=== PATIENT | female | born 1940 | race Caucasian/White ===

== ENCOUNTER 2017-02-25 16:52 | Outpatient (CLI) | payer MEDICARE, OTHER | END 2017-02-25 16:53 | disposition critical access hospital (66) | LOC: EMS 16:52 | PROVIDERS: ATTEND Surgery | DX: M25.561 Pain in right knee (principal) | CPT/HCPCS: A0425; A0429 ==

== ENCOUNTER 2017-02-25 16:52 | Emergency (ER) | payer MEDICARE, OTHER ==
[2017-02-25] MEDS ORDERED: HYDROcod/ACETAM 5/325 MG TABLET PO STA (16:59)
--- NOTE | 2017-02-25 17:17 | ED Physician Documentation ---
History of Present Illness - Stated complaint Stated Complaint: RT KNEE PX - Chief complaint Chief Complaint: Ext Problem - History obtained from History obtained from: Patient, EMS - History of Present Illness Timing: How many hours ago (8) Pain level max: 8 Pain level now: 8 Improved by: Rest Worsened by: palpation - Additonal information Additional information: Patient is a 76-year-old female who presents to the emergency department after standing up off of the toilet today, felt a pop in the right knee and has been unable to bear significant weight since that time. Has been hopping at home. Finally called the ambulance. 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 Also had a recent x-ray that showed mild arthritis. Took a Vicodin at approximately 11 AM without relief. 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 : None HEENT: None Psych: None Musculoskeletal: Osteoarthritis, Chronic back pain Derm: None - Past Surgical History Past Surgical History: Yes General: Appendectomy Ortho: Knee replacement /VESSEL MASTER: Hysterectomy HEENT: Tonsil/Adenoidectomy - Present Medications Home Medications: Ambulatory Orders Medication Instructions Recorded Confirmed Esomeprazole Magnesium [Nexium] 1 cap PO DAILY 02/25/17 02/25/17 Hydrocodone/Acetaminophen 1 - 2 each PO Q6H PRN #14 tablet 02/25/17 [Hydrocodon-Acetaminophen 5-325] Levothyroxine Sodium [Synthroid] 1 tab PO DAILY 02/25/17 02/25/17 Sumatriptan Succinate [Imitrex] 0.5 tab PO PRN PRN 02/25/17 02/25/17 - Allergies Allergies/Adverse Reactions: Allergies Allergy/AdvReac Type Severity Reaction Status Date / Time Sulfa (Sulfonamide Allergy Anaphylaxis Verified 02/25/17 17:05 Antibiotics) codeine AdvReac Emesis Verified 02/25/17 17:05 - Social History Does the pt smoke?: No Smoking Status: Never smoker Does the pt drink ETOH?: Yes ETOH Use: Wine Does the pt have substance abuse?: No - Immunizations Immunizations are current?: Yes - POLST Patient has POLST: No PD ED PE NORMAL - Vitals Vital signs reviewed: Yes - General General: Alert and oriented X 3, No acute distress - Derm Derm: Warm and dry - Extremities Extremities: Other (Right knee exam - Limited secondary to pain, but ACL, MCL, PCL, LCL are grossly intact. Unable to test meniscus secondary to pain. There is a mild joint effusion. Mild tenderness along the lateral joint line. No ecchymosis. Neurovascularly intact. Otherwise normal exam) - Neuro Neuro: Alert and oriented X 3 - Psych Psych: Normal mood, Normal affect Results - Vitals Vitals: Vital Signs - 24 hr 02/25/17 02/25/17 02/25/17 16:52 17:15 18:21 Temperature 36.9 C 36.6 C Heart Rate 87 79 74 Respiratory 16 16 12 Rate Blood Pressure 168/113 H 133/102 H 155/69 H O2 Saturation 99 95 95 Oxygen O2 Source Room air - Rads (name of study) Right knee x-ray Radiology: Prelim report reviewed, EMP read contemporaneously, See rad report ( No acute bony abnormality or joint effusion. Mild osteoarthritis of the medial compartment. ) PD MEDICAL DECISION MAKING - ED course Complexity details: reviewed results, re-evaluated patient, considered differential, d/w patient, d/w family ED course: Patient is a 76-year-old female who presents to the emergency department with acute onset of right knee pain after standing up today. Unclear etiology, possible meniscus injury? Possibly related to her Santos cyst? Given a walker for ambulation and this helped significantly. Reynaldo wrap was used to bandage and compress the knee was also made her feel better. We will have her reevaluated with her doctor in a few days to see how she is improving. There is a very limited exam secondary to pain. Pain well controlled in the emergency department. Patient and family counseled regarding signs and symptoms for which I believe and urgent re-evaluation would be necessary. Patient with good understanding of and agreement to plan and is comfortable going home at this time This document was made in part using voice recognition software. While efforts are made to proofread this document, sound alike and grammatical errors may occur. Departure - Departure Disposition: 01 Home, Self Care Clinical Impression: Knee sprain Qualifiers: Encounter type: initial encounter Involved ligament of knee: unspecified ligament Laterality: right Qualified Code(s): S83.91XA - Sprain of unspecified site of right knee, initial encounter Condition: Good Instructions: ED Sprain Knee Follow-Up: Tani Milian MD [Primary Care Provider] - Within 1 week [facility] [Provider Group] Prescriptions: Hydrocodone/Acetaminophen [Hydrocodon-Acetaminophen 5-325] 1 - 2 each PO Q6H PRN #14 tablet PRN Reason: pain Comments: You may bear weight as tolerated at home. Return if you worsen. You will need to be reevaluated by your doctor or orthopedics within the next week when the swelling and pain decreases to get a better exam of what happened to your knee today. Use the walker at home. Do not drink alcohol or drive while on narcotic pain medicine. Note that many narcotic pain relievers also contain tylenol/acetaminophen. Please ensure that your total dose of acetaminophen from all sources does not exceed 3 grams (3000mg) per day. You may constipated on this medication, take a stool softener such as "Colace" twice a day while you are on it. Also recommend a yscc-huf-acrmara laxative such as senna or MiraLAX any day that you do not have a bowel movement. If you received narcotic pain medication in the emergency department, do not drive or operate machinery for the next 24 hours. Your blood pressure was elevated today on check in to the emergency department. This does not mean that you have hypertension, it is a common phenomenon to check into the emergency department and have elevated blood pressure. I recommend that you see your primary care physician within the week to have it rechecked when you're feeling better. Discharge Date/Time: 02/25/17 18:31
[2017-02-25] MEDS ORDERED: HYDROcod/ACETAM 5/325 MG TABLET ONE (17:18)
--- NOTE | 2017-02-25 18:03 | XRAY Preliminary Report ---
Exam: XR Knee 4 View RT IMPRESSION: 1. No acute bony abnormality or joint effusion. 2. Mild osteoarthritis of the medial compartment. [facility] SITE ID: [id number]
--- NOTE | 2017-02-25 18:05 | XRAY Report ---
EXAM: RIGHT KNEE RADIOGRAPHY EXAM DATE: 02/25/2017 05:49 PM. CLINICAL HISTORY: Stood and felt a pop in her right knee, now painful. COMPARISON: None. TECHNIQUE: 4 views. FINDINGS: Bones: Normal. No fractures or bone lesions. Joints: Mild spurring, joint space narrowing, and sclerosis medially. No effusion. No subluxations. Soft Tissues: Normal. No soft tissue swelling. IMPRESSION: 1. No acute bony abnormality or joint effusion. 2. Mild osteoarthritis of the medial compartment. [facility] Referring Provider Line: [phone] SITE ID: [id number]
[2017-02-25 18:24] VITALS: BP 155/69
== END 2017-02-25 18:31 | disposition home or self-care (01) ==
LOC: EDUNIT# → ED 16:52
DX: S83.91XA Sprain of unspecified site of right knee, initial encounter (principal); X50.1XXA Overexertion from prolonged static or awkward postures, initial encounter; Y93.89 Activity, other specified; R03.0 Elevated blood-pressure reading, without diagnosis of hypertension
CPT/HCPCS: 73564; 99283; 99284; A9270

== ENCOUNTER 2017-02-28 08:13 | Outpatient (CLI) | payer MEDICARE, OTHER ==
[2017-02-28 13:30] LABS: BASOPHILS # (AUTO) 0.1 10^3/uL (0.0-0.1); BASOPHILS % (AUTO) 1.1 %; EOSINOPHILS # (AUTO) 0.2 10^3/uL (0.0-0.7); EOSINOPHILS % (AUTO) 2.8 %; HCT - HEMATOCRIT 41.5 % (37.0-47.0); HGB - HEMOGLOBIN 14.1 g/dL (12.0-16.0); LYMPHOCYTES # (AUTO) 2.6 10^3/uL (1.5-3.5); LYMPHOCYTES % (AUTO) 39.6 %; MEAN CORPUSCULAR HEMOGLOBIN 32.4 pg (27.0-31.0); MEAN CORPUSCULAR HGB CONC 34.1 g/dL (32.0-36.0); MEAN PLATELET VOLUME 8.1 fL (7.9-10.8); MONOCYTES # (AUTO) 0.4 10^3/uL (0.0-1.0); MONOCYTES % (AUTO) 6.2 %; NEUTROPHILS # (AUTO) 3.3 10^3/uL (1.5-6.6); NEUTROPHILS % (AUTO) 50.3 %; NUCLEATED RED BLOOD CELLS AUTO 0.1 /100WBC; RED BLOOD COUNT 4.37 10^6/uL (4.20-5.40); RED CELL DISTRIBUTION WIDTH 13.1 % (12.0-15.0); UNCORRECTED WHITE BLOOD COUNT 6.6 x10^3/uL; WHITE BLOOD COUNT 6.6 x10^3/uL (4.8-10.8)
[2017-02-28 13:57] LABS: ALBUMIN/GLOBULIN RATIO 1.1 (1.0-2.2); BILIRUBIN,TOTAL 0.5 mg/dL (0.2-1.0); BUN - BLOOD UREA NITROGEN 13 mg/dL (6-20); CALCIUM 9.5 mg/dL (8.5-10.3); CARBON DIOXIDE - CO2 26 mmol/L (21-32); CHLORIDE 99 mmol/L (101-111); CHOL/HDL RATIO 3.6 (<4.4); CHOLESTEROL 211 mg/dL; CREATININE 0.6 mg/dL (0.4-1.0); GFR - MDRD 97 (>89); GLUCOSE 80 mg/dL (70-100); HDL CHOLESTEROL 58 mg/dL; LDL/HDL RATIO 2.1 (<4.4); POTASSIUM 3.8 mmol/L (3.5-5.0); SODIUM 136 mmol/L (135-145); TOTAL PROTEIN 7.2 g/dL (6.7-8.2); TRIGLYCERIDES 143 mg/dL; VLDL CHOLESTEROL 29 mg/dL
== END 2017-02-28 08:14 | disposition home or self-care (01) ==
LOC: LAB.R 08:13
PROVIDERS: ATTEND Physician Assistant Medical
DX: Z79.899 Other long term (current) drug therapy (principal); E78.2 Mixed hyperlipidemia; M15.9 Polyosteoarthritis, unspecified; E03.9 Hypothyroidism, unspecified
CPT/HCPCS: 80053; 80061; 84443; 85025

== ENCOUNTER 2017-04-20 08:16 | Outpatient (CLI) | payer MEDICARE, OTHER ==
[2017-04-20 15:27] LABS: ALBUMIN/GLOBULIN RATIO 1.1 (1.0-2.2); BILIRUBIN,TOTAL 0.5 mg/dL (0.2-1.0); CALCIUM 9.2 mg/dL (8.5-10.3); CREATININE 0.6 mg/dL (0.4-1.0); POTASSIUM 3.9 mmol/L (3.5-5.0); TOTAL PROTEIN 6.7 g/dL (6.7-8.2)
== END 2017-04-20 08:17 | disposition home or self-care (01) ==
LOC: LAB.R 08:16
PROVIDERS: ATTEND Physician Assistant Medical
DX: R74.8 Abnormal levels of other serum enzymes (principal)
CPT/HCPCS: 80053

== ENCOUNTER 2017-09-06 11:11 | Outpatient (CLI) | payer MEDICARE, OTHER ==
[2017-09-06 11:32] LABS: BASOPHILS # (AUTO) 0.1 10^3/uL (0.0-0.1); BASOPHILS % (AUTO) 1.2 %; EOSINOPHILS # (AUTO) 0.2 10^3/uL (0.0-0.7); EOSINOPHILS % (AUTO) 3.9 %; HGB - HEMOGLOBIN 13.4 g/dL (12.0-16.0); LYMPHOCYTES # (AUTO) 2.4 10^3/uL (1.5-3.5); LYMPHOCYTES % (AUTO) 38.3 %; MEAN CORPUSCULAR HEMOGLOBIN 32.3 pg (27.0-31.0); MEAN CORPUSCULAR HGB CONC 34.1 g/dL (32.0-36.0); MEAN CORPUSCULAR VOLUME 94.9 fL (81.0-99.0); MEAN PLATELET VOLUME 7.2 fL (7.9-10.8); MONOCYTES # (AUTO) 0.5 10^3/uL (0.0-1.0); MONOCYTES % (AUTO) 7.6 %; NEUTROPHILS # (AUTO) 3.1 10^3/uL (1.5-6.6); PLT - PLATELET COUNT 315 10^3/uL (130-450); RED BLOOD COUNT 4.15 10^6/uL (4.20-5.40); RED CELL DISTRIBUTION WIDTH 12.5 % (12.0-15.0); WHITE BLOOD COUNT 6.4 x10^3/uL (4.8-10.8)
[2017-09-06 11:38] LABS: BILIRUBIN,URINE NEGATIVE (NEGATIVE); GLUCOSE, URINE (UA) NEGATIVE (NEGATIVE); KETONES,URINE (UA) NEGATIVE (NEGATIVE); LEUKOCYTE ESTERASE, URINE NEGATIVE (NEGATIVE); NITRITE,URINE NEGATIVE (NEGATIVE); OCCULT BLOOD,URINE NEGATIVE (NEGATIVE); PH,URINE 6.5 PH (5.0-7.5); PROTEIN,URINE NEGATIVE (NEGATIVE); UROBILINOGEN,URINE 0.2 (NORMAL) E.U./dL (NORMAL)
[2017-09-06 11:47] LABS: CREATININE 0.5 mg/dL (0.4-1.0)
[2017-09-06 11:57] LABS: HB2 TOTAL 14.8 g/dL; HEMOGLOBIN A1C 0.47 g/dL; HEMOGLOBIN A1C % 5.1 % (4.6-6.2)
[2017-09-06 12:03] LABS: BACTERIA,URINE None Seen /HPF (None Seen); CLARITY,URINE CLEAR (CLEAR); RBC,URINE 0-5 /HPF (0-5); SQUAMOUS EPITHELIAL CELL,UR RARE Squamous (<= Few)
== END 2017-09-06 11:12 | disposition home or self-care (01) ==
LOC: LAB 11:11
PROVIDERS: ATTEND Orthopaedic Surgery
DX: Z01.812 Encounter for preprocedural laboratory examination (principal); M25.561 Pain in right knee; D64.9 Anemia, unspecified; R73.9 Hyperglycemia, unspecified; N39.0 Urinary tract infection, site not specified
CPT/HCPCS: 36415; 80048; 81001; 83036; 84466; 85025; 87086; 93005

== ENCOUNTER 2018-01-30 08:00 | Outpatient (CLI) | payer MEDICARE, OTHER ==
[2018-01-30 16:27] LABS: BILIRUBIN,URINE NEGATIVE (NEGATIVE); GLUCOSE, URINE (UA) NEGATIVE (NEGATIVE); KETONES,URINE (UA) NEGATIVE (NEGATIVE); LEUKOCYTE ESTERASE, URINE NEGATIVE (NEGATIVE); NITRITE,URINE NEGATIVE (NEGATIVE); OCCULT BLOOD,URINE NEGATIVE (NEGATIVE); PROTEIN,URINE NEGATIVE (NEGATIVE); UROBILINOGEN,URINE 0.2 (NORMAL) E.U./dL (NORMAL)
[2018-01-30 16:56] LABS: CLARITY,URINE CLEAR (CLEAR)
[2018-01-30 17:26] LABS: BACTERIA,URINE None Seen /HPF (None Seen); RBC,URINE 0-5 /HPF (0-5); SQUAMOUS EPITHELIAL CELL,UR RARE Squamous (<= Few)
== END 2018-01-30 08:01 | disposition home or self-care (01) ==
LOC: LAB.R 08:00
PROVIDERS: ATTEND Physician Assistant Medical
DX: R31.9 Hematuria, unspecified (principal)
CPT/HCPCS: 81001; 87086

== ENCOUNTER 2018-06-20 08:00 | Outpatient (CLI) | payer MEDICARE, OTHER ==
[2018-06-20 13:28] LABS: BASOPHILS # (AUTO) 0.1 10^3/uL (0.0-0.1); BASOPHILS % (AUTO) 1.1 %; EOSINOPHILS # (AUTO) 0.2 10^3/uL (0.0-0.7); EOSINOPHILS % (AUTO) 3.5 %; HGB - HEMOGLOBIN 13.5 g/dL (12.0-16.0); LYMPHOCYTES # (AUTO) 2.2 10^3/uL (1.5-3.5); LYMPHOCYTES % (AUTO) 37.4 %; MEAN CORPUSCULAR HEMOGLOBIN 32.5 pg (27.0-31.0); MEAN CORPUSCULAR HGB CONC 34.6 g/dL (32.0-36.0); MEAN PLATELET VOLUME 8.2 fL (7.9-10.8); MONOCYTES # (AUTO) 0.5 10^3/uL (0.0-1.0); MONOCYTES % (AUTO) 9.3 %; NEUTROPHILS # (AUTO) 2.8 10^3/uL (1.5-6.6); NEUTROPHILS % (AUTO) 48.7 %; PLT - PLATELET COUNT 346 10^3/uL (130-450); RED BLOOD COUNT 4.14 10^6/uL (4.20-5.40); RED CELL DISTRIBUTION WIDTH 13.2 % (12.0-15.0); WHITE BLOOD COUNT 5.8 x10^3/uL (4.8-10.8)
[2018-06-20 13:43] LABS: ALBUMIN 3.7 g/dL (3.2-5.5); ALKALINE PHOSPHATASE 250 IU/L (42-121); ALT ALANINE AMINOTRANSFERASE 28 IU/L (10-60); AST ASPARTATE AMINOTRANSFERASE 33 IU/L (10-42); BILIRUBIN,TOTAL 0.7 mg/dL (0.2-1.0); BUN - BLOOD UREA NITROGEN 17 mg/dL (6-20); CALCIUM 9.3 mg/dL (8.5-10.3); CARBON DIOXIDE - CO2 27 mmol/L (21-32); CHLORIDE 101 mmol/L (101-111); CHOL/HDL RATIO 3.5 (<4.4); CHOLESTEROL 207 mg/dL; CREATININE 0.5 mg/dL (0.4-1.0); GFR - MDRD 120 (>89); GLUCOSE 89 mg/dL (70-100); HDL CHOLESTEROL 59 mg/dL; LDL CHOLESTEROL,CALCULATED 135 mg/dL; LDL/HDL RATIO 2.3 (<4.4); SODIUM 136 mmol/L (135-145); TOTAL PROTEIN 7.3 g/dL (6.7-8.2); VLDL CHOLESTEROL 13 mg/dL
== END 2018-06-20 23:59 | disposition home or self-care (01) ==
LOC: LAB.R 08:00
PROVIDERS: ATTEND Physician Assistant Medical
DX: R31.9 Hematuria, unspecified (principal); Z79.899 Other long term (current) drug therapy; E78.2 Mixed hyperlipidemia; E03.9 Hypothyroidism, unspecified; F32.9 Major depressive disorder, single episode, unspecified
CPT/HCPCS: 80053; 80061; 83721; 84443; 85025

== ENCOUNTER 2018-06-27 08:00 | Outpatient (CLI) | payer MEDICARE, OTHER | END 2018-06-27 23:59 | disposition home or self-care (01) | LOC: LAB.R 08:00 | PROVIDERS: ATTEND Physician Assistant Medical | DX: R74.8 Abnormal levels of other serum enzymes (principal) | CPT/HCPCS: 82977 ==

== ENCOUNTER 2018-10-17 09:12 | Outpatient (CLI) | payer MEDICARE, OTHER ==
[2018-10-17 09:48] LABS: BASOPHILS % (AUTO) 0.5 %; EOSINOPHILS # (AUTO) 0.1 10^3/uL (0.0-0.7); EOSINOPHILS % (AUTO) 1.1 %; LYMPHOCYTES # (AUTO) 1.4 10^3/uL (1.5-3.5); LYMPHOCYTES % (AUTO) 15.4 %; MEAN CORPUSCULAR HEMOGLOBIN 32.5 pg (27.0-31.0); MEAN CORPUSCULAR HGB CONC 33.6 g/dL (32.0-36.0); MEAN CORPUSCULAR VOLUME 96.6 fL (81.0-99.0); MEAN PLATELET VOLUME 6.7 fL (7.9-10.8); MONOCYTES # (AUTO) 0.4 10^3/uL (0.0-1.0); MONOCYTES % (AUTO) 4.4 %; NEUTROPHILS # (AUTO) 7.2 10^3/uL (1.5-6.6); NEUTROPHILS % (AUTO) 78.6 %; PLT - PLATELET COUNT 490 10^3/uL (130-450); RED BLOOD COUNT 4.32 10^6/uL (4.20-5.40); RED CELL DISTRIBUTION WIDTH 13.4 % (12.0-15.0); WHITE BLOOD COUNT 9.2 x10^3/uL (4.8-10.8)
[2018-10-17 09:55] LABS: CALCIUM 9.4 mg/dL (8.5-10.3); CREATININE 0.6 mg/dL (0.4-1.0)
== END 2018-10-17 09:13 | disposition home or self-care (01) ==
LOC: LAB 09:12
PROVIDERS: ATTEND Orthopaedic Surgery
DX: Z01.818 Encounter for other preprocedural examination (principal)
CPT/HCPCS: 36415; 80048; 85025; 93005

== ENCOUNTER 2018-11-13 09:56 | Outpatient (CLI) | payer MEDICARE, OTHER ==
--- NOTE | 2018-11-13 11:08 | DEXA Report ---
Reason: OSTEOPOROSIS Procedure Date: 11/13/2018 Accession Number: [id number] / [id number] Procedure: DEX - Dexa Spine and/or Hip CPT Code: FULL RESULT: EXAM: Dexa Spine and/or Hip DATE: 11/13/2018 10:33 AM CLINICAL HISTORY: OSTEOPOROSIS TECHNIQUE: Dual energy x-ray absorptiometry (DXA) was performed on a Visualead System. Regions measured are the AP Spine, femoral neck, and if needed forearm. COMPARISON: None. In accordance with the International Society for Clinical Densitometry (ISCD) guidelines, data from previous exams may be reanalyzed using current recommendations and techniques. This is done to allow a more accurate basis for comparison with the current study. FINDINGS: The data for the lumbar spine is as follows: BMD (g/cm/cm) T-SCORE Z-SCORE REGION L1 0.873 -2.1 -0.6 L2 1.079 -1.0 0.5 L3 1.032 -1.4 0.1 L4 1.080 -1.0 0.5 TOTAL 1.020 -1.3 0.2 NOTE: All evaluable vertebrae are used for classification The data for the hip is as follows: BMD (g/cm/cm) T-SCORE Z-SCORE REGION Neck 0.620 -3.0 -1.2 TOTAL 0.641 -2.9 -1.3 NOTE: The femoral neck or total proximal femur, whichever is lowest, is used for classification. IMPRESSION: THE WHO CLASSIFICATION BASED ON THE INTERNATIONAL REFERENCE STANDARD IS OSTEOPOROSIS. THE FRACTURE RISK IS HIGH. RECOMMENDATION: Patients with diagnosis of osteoporosis or osteopenia should have regular bone mineral density assessment. For those eligible for Medicare, routine testing is allowed once every 2 years. Testing frequency can be increased for patients who have rapidly progressing disease or for those who are receiving medical therapy to restore bone mass. COMMENT: World Health Organization (WHO) definitions for osteoporosis and osteopenia: NORMAL BMD: T-score at -1.0 or higher, fracture risk is low OSTEOPENIA BMD: T-score between -1.0 and -2.5, fracture risk is increased. OSTEOPOROSIS BMD: T-score at -2.5 or lower, fracture risk is high. National Osteoporosis Foundation recommends: 1. Obtain adequate dietary calcium (at least 1200 mg per day) and vitamin D (400-800 international units per day). 2. Participate, as appropriate, in regular weightbearing and muscle-strengthening exercise. 3. Avoid tobacco use and reduce alcohol and caffeine intake. 4. For more detailed information see the website at www.NOF.org.
== END 2018-11-13 09:57 | disposition home or self-care (01) ==
LOC: DI 09:56
PROVIDERS: ATTEND Family Medicine
DX: M81.0 Age-related osteoporosis without current pathological fracture (principal)
CPT/HCPCS: 36415; 77080; 82306

== ENCOUNTER 2019-10-21 08:00 | Outpatient (CLI) | payer MEDICARE, OTHER ==
[2019-10-21 17:44] LABS: BASOPHILS # (AUTO) 0.1 10^3/uL (0.0-0.1); BASOPHILS % (AUTO) 1.2 %; EOSINOPHILS # (AUTO) 0.2 10^3/uL (0.0-0.7); HGB - HEMOGLOBIN 14.7 g/dL (12.0-16.0); LYMPHOCYTES # (AUTO) 1.4 10^3/uL (1.5-3.5); LYMPHOCYTES % (AUTO) 21.1 %; MEAN CORPUSCULAR HEMOGLOBIN 33.4 pg (27.0-31.0); MEAN CORPUSCULAR HGB CONC 33.6 g/dL (32.0-36.0); MEAN CORPUSCULAR VOLUME 99.5 fL (81.0-99.0); MEAN PLATELET VOLUME 10.4 fL (7.9-10.8); MONOCYTES # (AUTO) 0.5 10^3/uL (0.0-1.0); MONOCYTES % (AUTO) 7.4 %; NEUTROPHILS # (AUTO) 4.4 10^3/uL (1.5-6.6); NEUTROPHILS % (AUTO) 66.8 %; PLT - PLATELET COUNT 318 10^3/uL (130-450); RED CELL DISTRIBUTION WIDTH 12.6 % (12.0-15.0); WHITE BLOOD COUNT 6.6 x10^3/uL (4.8-10.8)
[2019-10-21 17:55] LABS: ALBUMIN 3.9 g/dL (3.2-5.5); ALBUMIN/GLOBULIN RATIO 1.2 (1.0-2.2); CALCIUM 9.4 mg/dL (8.5-10.3); CREATININE 0.6 mg/dL (0.4-1.0); TOTAL PROTEIN 7.1 g/dL (6.7-8.2)
[2019-10-21 18:31] LABS: HB2 TOTAL 15.2 g/dL; HEMOGLOBIN A1C 0.49 g/dL; HEMOGLOBIN A1C % 5.1 % (4.6-6.2)
== END 2019-10-21 23:59 | disposition home or self-care (01) ==
LOC: LAB.WCP 08:00
PROVIDERS: ATTEND Family Medicine
DX: M54.9 Dorsalgia, unspecified (principal); G89.29 Other chronic pain; E03.9 Hypothyroidism, unspecified; M50.30 Other cervical disc degeneration, unspecified cervical region; M15.9 Polyosteoarthritis, unspecified; M25.562 Pain in left knee
CPT/HCPCS: 36415; 80053; 83036; 84443; 85025

== ENCOUNTER 2020-07-30 08:00 | Outpatient (CLI) | payer MEDICARE, OTHER ==
[2020-07-30 18:16] LABS: BASOPHILS # (AUTO) 0.1 10^3/uL (0.0-0.1); BASOPHILS % (AUTO) 0.7 %; EOSINOPHILS % (AUTO) 0.4 %; HCT - HEMATOCRIT 43.1 % (37.0-47.0); HGB - HEMOGLOBIN 14.2 g/dL (12.0-16.0); LYMPHOCYTES # (AUTO) 1.3 10^3/uL (1.5-3.5); MEAN CORPUSCULAR HEMOGLOBIN 33.5 pg (27.0-31.0); MEAN CORPUSCULAR HGB CONC 32.9 g/dL (32.0-36.0); MEAN CORPUSCULAR VOLUME 101.7 fL (81.0-99.0); MEAN PLATELET VOLUME 9.9 fL (7.9-10.8); MONOCYTES # (AUTO) 0.6 10^3/uL (0.0-1.0); NEUTROPHILS # (AUTO) 8.6 10^3/uL (1.5-6.6); NEUTROPHILS % (AUTO) 79.9 %; PLT - PLATELET COUNT 365 10^3/uL (130-450); RED BLOOD COUNT 4.24 10^6/uL (4.20-5.40); RED CELL DISTRIBUTION WIDTH 12.5 % (12.0-15.0); WHITE BLOOD COUNT 10.7 x10^3/uL (4.8-10.8)
[2020-07-30 18:25] LABS: CALCIUM 9.6 mg/dL (8.5-10.3); CREATININE 0.5 mg/dL (0.4-1.0)
[2020-07-30 18:42] LABS: THYROID STIMULATING HORMONE 0.56 uIU/mL (0.34-5.60)
[2020-07-30 18:45] LABS: FREE T3 2.8 pg/mL (2.5-3.9)
[2020-07-30 18:46] LABS: FREE T4 (FREE THYROXINE) 0.83 ng/dL (0.58-1.64)
== END 2020-07-30 23:59 | disposition home or self-care (01) ==
LOC: LAB.WCP 08:00
PROVIDERS: ATTEND Family Medicine
DX: E03.9 Hypothyroidism, unspecified (principal); R20.8 Other disturbances of skin sensation; R60.9 Edema, unspecified; M15.9 Polyosteoarthritis, unspecified
CPT/HCPCS: 36415; 80048; 84439; 84443; 84481; 85025

== ENCOUNTER 2020-08-01 14:36 | Outpatient (CLI) | payer MEDICARE, OTHER | END 2020-08-01 14:37 | disposition critical access hospital (66) | LOC: EMS 14:36 | PROVIDERS: ATTEND Emergency Medicine | DX: M25.551 Pain in right hip (principal); M54.5 Low back pain; S09.90XA Unspecified injury of head, initial encounter; W18.30XA Fall on same level, unspecified, initial encounter | CPT/HCPCS: A0425; A0427 ==

== ENCOUNTER 2020-08-01 14:45 | Emergency (ER) | payer MEDICARE, OTHER ==
[2020-08-01] MEDS ORDERED: HYDROmorphone 1 MG/ML CARPUJECT IVP STA (15:16)
--- NOTE | 2020-08-01 15:23 | ED Physician Documentation ---
History of Present Illness - Stated complaint Stated Complaint: FALL - Chief complaint Chief Complaint: Trauma Hd/Nk - History obtained from History obtained from: Patient, EMS - History of Present Illness Timing: Yesterday Pain level max: 9 Pain level now: 9 - Additonal information Additional information: Patient is a 79-year-old female who fell yesterday outside. She states she missed a step falling backwards onto the concrete striking her head. She complains of right shoulder pain, right elbow pain, right forearm pain and bilateral knee pain. Also complains of a gradual onset headache worsening since the event. She took her hydrocodone at home without relief. She was given morphine by EMS without relief. No numbness or tingling. Has been walking at home. She has bilateral prosthetic knees. Worse with movement, better with rest Review of Systems Ten Systems: 10 systems reviewed and negative Constitutional: denies: Fever, Chills Ears: denies: Ear pain Nose: denies: Rhinorrhea / runny nose, Congestion Throat: denies: Sore throat Cardiac: denies: Chest pain / pressure, Palpitations Respiratory: denies: Cough GI: denies: Abdominal Pain, Vomiting, Diarrhea Skin: denies: Rash Neurologic: denies: Focal weakness, Numbness PD PAST MEDICAL HISTORY - Past Medical History Past Medical History: Yes Cardiovascular: None, Hypertension Respiratory: None Endocrine/Autoimmune: HyPOthyroidism GI: 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 : None HEENT: None Psych: None Musculoskeletal: Osteoarthritis, Chronic back pain Derm: None - Past Surgical History Past Surgical History: Yes General: Appendectomy Ortho: Knee replacement /TEACHER HOME THERAPY: Hysterectomy HEENT: Tonsil/Adenoidectomy - Present Medications Home Medications: Ambulatory Orders Medication Instructions Recorded Confirmed Esomeprazole Magnesium [Nexium] 1 cap PO DAILY 02/25/17 02/25/17 Hydrocodone/Acetaminophen 1 - 2 each PO Q6H PRN #14 tablet 02/25/17 [Hydrocodon-Acetaminophen 5-325] Levothyroxine Sodium [Synthroid] 1 tab PO DAILY 02/25/17 02/25/17 Sumatriptan Succinate [Imitrex] 0.5 tab PO PRN PRN 02/25/17 02/25/17 oxyCODONE [Roxicodone] 5 mg PO Q6H PRN #14 tablet 08/01/20 - Allergies Allergies/Adverse Reactions: Allergies Allergy/AdvReac Type Severity Reaction Status Date / Time Sulfa (Sulfonamide Allergy Anaphylaxis Verified 08/01/20 14:59 Antibiotics) codeine AdvReac Emesis Verified 08/01/20 14:59 - Social History Does the pt smoke?: No Smoking Status: Never smoker Does the pt drink ETOH?: Yes Does the pt have substance abuse?: No - Immunizations Immunizations are current?: Yes - POLST Patient has POLST: No PD ED PE NORMAL - Vitals Vital signs reviewed: Yes - General General: Alert and oriented X 3, No acute distress, Well developed/nourished - HEENT HEENT: Atraumatic, PERRL, EOMI, Ears normal, Moist mucous membranes, Pharynx benign - Neck Neck: Supple, no meningeal sign, Other (Minimal tenderness, mid C-spine. No isaac p-off or deformity) - Cardiac Cardiac: RRR, Strong equal pulses - Respiratory Respiratory: No respiratory distress, Clear bilaterally - Abdomen Abdomen: Soft, Non tender, Non distended - Back Back: No spinal TTP (No step-off or deformity. No tenderness) - Derm Derm: Warm and dry - Extremities Extremities: Other (Diffusely tender to palpation about the right shoulder. Also diffusely tender along the humerus and forearm. No gross deformity noted. There is swelling to the right shoulder. Neurovascular intact. Limited range of motion secondary to pain) - Neuro Neuro: Alert and oriented X 3, administrative services assistant 2-12 intact, No motor deficit, No sensory deficit, Normal speech Eye Opening: Spontaneous Motor: Obeys Commands Verbal: Oriented GCS Score: 15 - Psych Psych: Normal mood, Normal affect Results - Vitals Vitals: Vital Signs - 24 hr 08/01/20 08/01/20 14:50 17:08 Temperature 37.4 C Heart Rate 81 88 Respiratory 16 20 Rate Blood Pressure 138/94 H 166/88 H O2 Saturation 99 92 Oxygen O2 Source Room air - Rads (name of study) head Ct Radiology: Prelim report reviewed, EMP read contemporaneously, See rad report (IMPRESSION: 1. Prominent age related volume loss. 2. No evidence acute stroke, hemorrhage, or mass. No evidence of significant intracranial sequelae of acute trauma. ) cervical spine ct Radiology: Prelim report reviewed, EMP read contemporaneously, See rad report (1. No evidence acute cervical fracture or dislocation. 2. Cervical spondylitic change. 3. Incidental note made of the presence of probable aneurysmal dilatation of the ascending aorta) R shoulder xray Radiology: Prelim report reviewed, EMP read contemporaneously, See rad report (Severe glenohumeral joint degenerative change. No evidence acute bony abnormality of the right shoulder. ) R humerus xray Radiology: Prelim report reviewed, EMP read contemporaneously, See rad report (1. Severe degenerative arthritis of the articulation between the distal humerus and the ulna. 2. Deformity of the radial head, of uncertain chronicity. ) R elbow xray Radiology: Prelim report reviewed, EMP read contemporaneously, See rad report (1. Extensive deformity at the elbow from remote trauma. 2. Degenerative arthritis of the elbow. 3. No plain film evidence of acute bony abnormality of the elbow. ) R forearm xray Radiology: Prelim report reviewed, EMP read contemporaneously, See rad report (Right elbow degenerative arthritis. No evidence acute bony abnormality of the right forearm) B knee xray Radiology: Prelim report reviewed, EMP read contemporaneously, See rad report (1. Expected appearance of bilateral total knee arthroplasties. 2. No evidence acute bony abnormality of the bilateral knees. ) PD MEDICAL DECISION MAKING - ED course Complexity details: reviewed results, re-evaluated patient, considered differential, d/w patient ED course: 79-year-old female with a fall. No acute findings on x-rays or CT. Does have a possible aortic aneurysm, appears to measure about 3 to 3.5 cm in size. She will follow up with her doctor for further evaluation of this. Pain is well controlled. Given a sling for the right arm and this does make it feel better. Ambulating well. Patient counseled regarding signs and symptoms for which I believe and urgent re-evaluation would be necessary. Patient with good understanding of and agreement to plan and is comfortable going home at this time This document was made in part using voice recognition software. While efforts are made to proofread this document, sound alike and grammatical errors may occur. Departure - Departure Disposition: 01 Home, Self Care Clinical Impression: Sprain of shoulder Qualifiers: Encounter type: initial encounter Shoulder sprain type: unspecified sprain Laterality: right Qualified Code(s): S43.401A - Unspecified sprain of right shoulder joint, initial encounter Contusion, elbow Qualifiers: Encounter type: initial encounter Laterality: right Qualified Code(s): S50.01XA - Contusion of right elbow, initial encounter Knee contusion Qualifiers: Encounter type: initial encounter Laterality: unspecified laterality Qualified Code(s): S80.00XA - Contusion of unspecified knee, initial encounter Head injury Qualifiers: Encounter type: initial encounter Qualified Code(s): S09.90XA - Unspecified injury of head, initial encounter Condition: Good Instructions: ED Head Injury Closed, ED Sprain Shoulder Follow-Up: Scot Armas MD [Primary Care Provider] - Within 1 week Prescriptions: oxyCODONE [Roxicodone] 5 mg PO Q6H PRN #14 tablet PRN Reason: breakthrough pain Comments: Wear the sling as needed for comfort. Return if you worsen. Follow-up with your doctor within a week for repeat evaluation. Drink plenty of fluids and rest. You can use the oxycodone as needed for breakthrough pain. Do not drink alcohol or drive while on narcotic pain medicine. Note that many narcotic pain relievers also contain tylenol/acetaminophen. Please ensure that your total dose of acetaminophen from all sources does not exceed 3 grams (3000mg) per day. You may constipated on this medication, take a stool softener such as "Colace" twice a day while you are on it. Also recommend a psep-dgo-gzgxwpf laxative such as senna or MiraLAX any day that you do not have a bowel movement. If you received narcotic pain medication in the emergency department, do not drive or operate machinery for the next 24 hours. You also may have an aortic aneurysm in your ascending aorta. This should be followed up with your doctor with further imaging. Discharge Date/Time: 08/01/20 18:22
--- NOTE | 2020-08-01 16:08 | CT Report ---
PROCEDURE: HEAD WO INDICATIONS: fall, head injury TECHNIQUE: Noncontrast 4.5 mm thick angled axial sections acquired from the foramen magnum to the vertex. For r adiation dose reduction, the following was used: automated exposure control, adjustment of mA and/or kV according to patient size. COMPARISON: None. FINDINGS: Image quality: Excellent. CSF spaces: Basal cisterns are patent. No extra-axial fluid collections. Ventricles are normal in size and shape. Prominent age related volume loss. Question incidental left middle temporal fossa ar achnoid cyst versus prominent anterior temporal tip volume loss. Brain: No midline shift. No intracranial masses or hemorrhage. Russell-white matter interface is norm al. Skull and face: Calvarium and visualized facial bones are intact, without suspicious lesions. Sinuses: Visualized sinuses and mastoids are clear. IMPRESSION: 1. Prominent age related volume loss. 2. No evidence acute stroke, hemorrhage, or mass. No evidence of significant intracranial sequelae of acute trauma. Reviewed by: Zac Bingham MD on 08/01/2020 3:07 PM [facility] Approved by: Zac Bingham MD on 08/01/2020 3:07 PM [facility] Station ID: [id number]
--- NOTE | 2020-08-01 16:12 | CT Report ---
PROCEDURE: CERVICAL SPINE WO INDICATIONS: fall, neck pain TECHNIQUE: Noncontrast 3 mm thick sections acquired from the skull base to the T4 level. Sagittal and coronal r eformats were then constructed. For radiation dose reduction, the following was used: automated exp osure control, adjustment of mA and/or kV according to patient size. COMPARISON: None. FINDINGS: Image quality: Excellent. Bones: No fractures or dislocations. Visualized superior ribs are intact. Cervical spondylitic pepe nge. Soft tissues: Prevertebral soft tissues are normal in thickness. No paravertebral hematomas. No ap ical pneumothoraces. There is likely an ascending aortic aneurysm. The proximal aortic arch appears to measure 4 cm in diameter. IMPRESSION: 1. No evidence acute cervical fracture or dislocation. 2. Cervical spondylitic change. 3. Incidental note made of the presence of probable aneurysmal dilatation of the ascending aorta. Reviewed by: Zac Bingham MD on 08/01/2020 3:11 PM [facility] Approved by: Zac Bingham MD on 08/01/2020 3:11 PM [facility] Station ID: [id number]
--- NOTE | 2020-08-01 16:24 | XRAY Report ---
PROCEDURE: Forearm RT INDICATIONS: fall, pain TECHNIQUE: 2 views of the forearm were acquired. COMPARISON: Right humerus from the same day FINDINGS: Bones: No fractures or dislocations. Degenerative change at the right elbow. No suspicious bony lesi ons. Soft tissues: No suspicious soft tissue calcifications or masses. IMPRESSION: Right elbow degenerative arthritis. No evidence acute bony abnormality of the right forearm. Reviewed by: Zac Bingham MD on 08/01/2020 3:22 PM [facility] Approved by: Zac Bingham MD on 08/01/2020 3:22 PM [facility] Station ID: [id number]
--- NOTE | 2020-08-01 16:26 | XRAY Report ---
PROCEDURE: Humerus RT INDICATIONS: fall, pain TECHNIQUE: 2 views of the humerus were acquired. COMPARISON: Right forearm from the same date FINDINGS: Bones: Severe arthritic change involving the articulation between the distal humerus and the ulna. De formity of the radial head of uncertain chronicity. No suspicious bony lesions. Soft tissues: No suspicious soft tissue calcifications. IMPRESSION: 1. Severe degenerative arthritis of the articulation between the distal humerus and the ulna. 2. Deformity of the radial head, of uncertain chronicity. Comment: Consider dedicated right elbow films to rule out a radial head fracture. Reviewed by: Zac Bingham MD on 08/01/2020 3:25 PM [facility] Approved by: Zac Bingham MD on 08/01/2020 3:25 PM [facility] Station ID: [id number]
--- NOTE | 2020-08-01 16:49 | XRAY Report ---
PROCEDURE: Knee 2 View BILAT INDICATIONS: fall. B knee pain TECHNIQUE: 2 views of the bilateral knee(s) were acquired. COMPARISON: None. FINDINGS: Bones: Bilateral total knee arthroplasties with no evidence of hardware failure or loosening. No fra ctures or dislocations. No suspicious bony lesions. Soft tissues: No joint effusion. No suspicious soft tissue calcifications. IMPRESSION: 1. Expected appearance of bilateral total knee arthroplasties. 2. No evidence acute bony abnormality of the bilateral knees. Reviewed by: Zac Bingham MD on 08/01/2020 3:47 PM [facility] Approved by: Zac Bingham MD on 08/01/2020 3:47 PM [facility] Station ID: [id number]
--- NOTE | 2020-08-01 16:50 | XRAY Report ---
PROCEDURE: Shoulder 3 View RT INDICATIONS: fall, pain TECHNIQUE: 3 views of the shoulder were acquired. COMPARISON: None. FINDINGS: Bones: No fractures or dislocations. No suspicious bony lesions. Visualized ribs appear intact. S evere glenohumeral joint degenerative change. Soft tissues: No suspicious soft tissue calcifications . IMPRESSION: Severe glenohumeral joint degenerative change. No evidence acute bony abnormality of the right shoulder. Reviewed by: Zac Bingham MD on 08/01/2020 3:48 PM [facility] Approved by: Zac Bingham MD on 08/01/2020 3:48 PM [facility] Station ID: [id number]
[2020-08-01 17:11] VITALS: BP 166/88
--- NOTE | 2020-08-01 17:20 | XRAY Report ---
PROCEDURE: Elbow 3 View RT INDICATIONS: possible radial head fracture TECHNIQUE: 3 views of the elbow were acquired. COMPARISON: Right humerus and right forearm from the same date FINDINGS: Bones: Deformity of the radial head and coracoid process of the ulna are likely secondary to remote t rauma. There is severe degenerative arthritis. No significant elbow joint fluid is identified. No radha in film evidence of acute fracture or dislocation. No suspicious bony lesions. Soft tissues: No elbow joint effusion. No suspicious soft tissue calcifications. IMPRESSION: 1. Extensive deformity at the elbow from remote trauma. 2. Degenerative arthritis of the elbow. 3. No plain film evidence of acute bony abnormality of the elbow. Comment: If clinically suspect acute elbow fracture in the face of negative plain films for acute fra cture, consider CT. Reviewed by: Zac Bingham MD on 08/01/2020 4:19 PM [facility] Approved by: Zac Bingham MD on 08/01/2020 4:19 PM [facility] Station ID: [id number]
[2020-08-01] MEDS ORDERED: oxyCODONE 5 MG TABLET PO STA (17:36)
[2020-08-01] MEDS ORDERED: ONDANSETRON 4 MG/2 ML VIAL IVP STA (17:41)
== END 2020-08-01 18:22 | disposition home or self-care (01) ==
LOC: EDUNIT# → ED 14:45
DX: S43.401A Unspecified sprain of right shoulder joint, initial encounter (principal); S50.01XA Contusion of right elbow, initial encounter; S09.90XA Unspecified injury of head, initial encounter; S80.00XA Contusion of unspecified knee, initial encounter; W10.9XXA Fall (on) (from) unspecified stairs and steps, initial encounter; R93.5 Abnormal findings on diagnostic imaging of other abdominal regions, including retroperitoneum
CPT/HCPCS: 70450; 72125; 73030; 73060; 73080; 73090; 73565; 96374; 96375; 99284; J1170

== ENCOUNTER 2020-09-09 08:00 | Outpatient (CLI) | payer MEDICARE, OTHER ==
[2020-09-09 18:28] LABS: BASOPHILS # (AUTO) 0.1 10^3/uL (0.0-0.1); BASOPHILS % (AUTO) 0.9 %; EOSINOPHILS # (AUTO) 0.1 10^3/uL (0.0-0.7); EOSINOPHILS % (AUTO) 0.9 %; HCT - HEMATOCRIT 45.1 % (37.0-47.0); HGB - HEMOGLOBIN 14.6 g/dL (12.0-16.0); LYMPHOCYTES # (AUTO) 2.4 10^3/uL (1.5-3.5); LYMPHOCYTES % (AUTO) 22.7 %; MEAN CORPUSCULAR HEMOGLOBIN 33.5 pg (27.0-31.0); MEAN CORPUSCULAR HGB CONC 32.4 g/dL (32.0-36.0); MEAN CORPUSCULAR VOLUME 103.4 fL (81.0-99.0); MEAN PLATELET VOLUME 9.6 fL (7.9-10.8); MONOCYTES # (AUTO) 0.6 10^3/uL (0.0-1.0); NEUTROPHILS # (AUTO) 7.3 10^3/uL (1.5-6.6); NEUTROPHILS % (AUTO) 68.2 %; PLT - PLATELET COUNT 389 10^3/uL (130-450); RED BLOOD COUNT 4.36 10^6/uL (4.20-5.40); WHITE BLOOD COUNT 10.7 x10^3/uL (4.8-10.8)
[2020-09-09 19:22] LABS: ALBUMIN/GLOBULIN RATIO 1.5 (1.0-2.2); BILIRUBIN,TOTAL 0.8 mg/dL (0.2-1.0); CALCIUM 9.5 mg/dL (8.5-10.3); CREATININE 0.5 mg/dL (0.4-1.0); POTASSIUM 3.5 mmol/L (3.5-5.0); TOTAL PROTEIN 6.6 g/dL (6.7-8.2)
[2020-09-09 19:45] LABS: THYROID STIMULATING HORMONE 1.92 uIU/mL (0.34-5.60)
== END 2020-09-09 23:59 | disposition home or self-care (01) ==
LOC: LAB.WCP 08:00
PROVIDERS: ATTEND Family Medicine
DX: E03.9 Hypothyroidism, unspecified (principal); M17.12 Unilateral primary osteoarthritis, left knee; M25.562 Pain in left knee
CPT/HCPCS: 36415; 80053; 84443; 85025

== ENCOUNTER 2020-10-13 15:01 | Outpatient (CLI) | payer MEDICARE, OTHER ==
--- NOTE | 2020-10-14 08:31 | Ultrasound Report ---
PROCEDURE: Duplex Ext Veins Bilateral INDICATIONS: Bilateral lower extremity tenderness and peripheral edema. TECHNIQUE: Real-time imaging, as well as color and pulse Doppler interrogation, were performed of the deep veins of both legs from the inguinal ligament to the popliteal fossa. COMPARISON: 03/10/2013 FINDINGS: The deep veins are normally compressible, and free of intraluminal thrombus. Color and pu lse Doppler demonstrate normal phasic intravascular flow. There is normal augmentation response to d istal compression maneuver. The calf veins were not well visualized on the left. Compression of the right calf veins limited due to subcutaneous edema. Extensive subcutaneous changes edema is demonstra last in the calf regions bilaterally. IMPRESSION: 1. No definite evidence of deep venous thrombosis in the right or left lower extremities, with evalua tion of the calf veins limited. Reviewed by: Rosendo West MD on 10/14/2020 8:30 AM PDT Approved by: Rosendo West MD on 10/14/2020 8:30 AM PDT Station ID: [id number]
== END 2020-10-13 15:02 | disposition home or self-care (01) ==
LOC: DI 15:01
PROVIDERS: ATTEND Family Medicine
DX: R60.0 Localized edema (principal); R20.8 Other disturbances of skin sensation
CPT/HCPCS: 93970

== ENCOUNTER 2021-03-02 08:29 | Emergency (ER) | payer MEDICARE, OTHER ==
[2021-03-02] MEDS ORDERED: MUPIROCIN 2% OINT 1 GM TOP STA (08:57)
[2021-03-02] MEDS ORDERED: DOXYCYCLINE 100 MG TABLET PO STA (08:57)
--- NOTE | 2021-03-02 08:58 | ED Physician Documentation ---
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 It has had some clear drainage from it (chronic lower leg edema) and has increased tenderness of it the past several days. She has had bandage on it and has noted couple days of red bumps on skin near the wound.), Still present Location: LLE Quality / character: Painful, Discolored (some redness around edges of it the past couple days.), Swelling (general edema of both lower legs for few months.) Associated symptoms: No: Fever, Myalgias Similar symptoms before: Has not had sx before Recently seen: Not recently seen (called PMD office to make appt and was told to come to ER.) Review of Systems Constitutional: denies: Fever, Chills Musculoskeletal: reports: Extremity swelling (both legs for months; tried compressive stockings from drug store but felt them too tight and uncomfortable.) Neurologic: denies: Focal weakness, Numbness PD PAST MEDICAL HISTORY - Past Medical History Past Medical History: Yes Cardiovascular: None, Hypertension, Other Respiratory: None Endocrine/Autoimmune: HyPOthyroidism GI: GERD 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: Hysterectomy HEENT: Tonsil/Adenoidectomy - Present Medications Home Medications: Ambulatory Orders Medication Instructions Recorded Confirmed Esomeprazole Magnesium [Nexium] 1 cap PO DAILY 02/25/17 03/02/21 Levothyroxine Sodium [Synthroid] 1 tab PO DAILY 02/25/17 03/02/21 Sumatriptan Succinate [Imitrex] 0.5 tab PO PRN PRN 02/25/17 03/02/21 Doxycycline Hyclate 100 mg PO BID 7 Days #14 cap 03/02/21 Mupirocin 2% Oint [Bactroban 2% 1 applic TOP TID #15 gm 03/02/21 Oint] - Allergies Allergies/Adverse Reactions: Allergies Allergy/AdvReac Type Severity Reaction Status Date / Time Sulfa (Sulfonamide Allergy Anaphylaxis Verified 03/02/21 08:35 Antibiotics) codeine AdvReac Emesis Verified 03/02/21 08:35 - Social History Does the pt smoke?: No Smoking Status: Never smoker Does the pt drink ETOH?: Yes Does the pt have substance abuse?: No - Immunizations Immunizations are current?: Yes - POLST Patient has POLST: No PD ED PE NORMAL - Vitals Vital signs reviewed: Yes - General General: Alert and oriented X 3, No acute distress, Well developed/nourished - Cardiac Cardiac: RRR, No murmur - Respiratory Respiratory: Clear bilaterally - Derm Derm: Normal color, Warm and dry - Extremities Extremities: No calf tenderness / cord, Other (2+ edema in both lower legs below knees. Left anterior lower leg mid way with rounded wound 1 cm diameter, to fatty tissue layer. No purulence. Mild weeping of clear/yellow fluid and culture obtained. around the wound is area of red point bumps with white heads demarcated in rectangular shape.) - Neuro Neuro: Alert and oriented X 3, No motor deficit, No sensory deficit, Normal speech Results - Vitals Vitals: Vital Signs - 24 hr 03/02/21 03/02/21 08:35 09:18 Temperature 36.1 C L Heart Rate 80 82 Respiratory 18 16 Rate Blood Pressure 145/85 H 132/80 H O2 Saturation 97 96 Oxygen O2 Source Room air - Labs Labs: Microbiology 03/02/21 08:49 Wound Culture - Preliminary Leg - Left PD MEDICAL DECISION MAKING - ED course Complexity details: considered differential (open wound with clear weeping, likely due to leg edema. Not appearing purulent. Is locally tender. Has red point pustules around it in rectangle c/w dermatitis from bandaids. concern for early infection though. ), d/w patient Departure - Departure Disposition: 01 Home, Self Care Clinical Impression: Open wound, lower leg Qualifiers: Encounter type: initial encounter Laterality: left Qualified Code(s): S81.802A - Unspecified open wound, left lower leg, initial encounter Condition: Stable Record reviewed to determine appropriate education?: Yes Follow-Up: Scot Armas MD [Primary Care Provider] - Prescriptions: Mupirocin 2% Oint [Bactroban 2% Oint] 1 applic TOP TID #15 gm Doxycycline Hyclate 100 mg PO BID 7 Days #14 cap Comments: I think your wound may have a mild infection given the tenderness and poor healing. The small red bumps around it however look like irritation from the Band-Aids and coverings you been using (contact dermatitis). I would suggest a nonadherent dressing such as Telfa covered by self adhering wound wrap and avoid taping on the skin in the area. Cleanse the area once or twice daily and apply mupirocin topical antibiotic lightly prior to the dressing. Doxycycline antibiotic twice daily for possible infection. The wound culture will result in a couple of days and give us better guidance on infection presence and antibiotic choice. I would suggest some loose fitting compressive socks to help with the swelling in the legs in general. Wear them during the day and can be removed at night. You do want them to tight as that will be annoying but just enough to persuade the fluid out of the tissue. Follow-up with your primary care later this week or next week for recheck of the wound. I transmitted the prescriptions to [facility] pharmacy. Discharge Date/Time: 03/02/21 09:20
[2021-03-02 09:20] VITALS: BP 132/80
== END 2021-03-02 09:20 | disposition home or self-care (01) ==
LOC: ED 08:29
DX: S81.802A Unspecified open wound, left lower leg, initial encounter (principal); W22.8XXA Striking against or struck by other objects, initial encounter; I10 Essential (primary) hypertension
CPT/HCPCS: 87070; 87077; 87181; 87205; 99283; A9270

== ENCOUNTER 2021-04-28 08:00 | Outpatient (CLI) | payer MEDICARE, OTHER | END 2021-04-28 23:59 | disposition home or self-care (01) | LOC: LAB.WCP 08:00 | PROVIDERS: ATTEND Family Medicine | DX: R35.0 Frequency of micturition (principal) | CPT/HCPCS: 87086; 87181 ==

== ENCOUNTER 2021-05-20 22:43 | Outpatient (CLI) | payer MEDICARE, OTHER | END 2021-05-20 22:44 | disposition critical access hospital (66) | LOC: EMS 22:43 | DX: S00.83XA Contusion of other part of head, initial encounter (principal); M25.551 Pain in right hip; W19.XXXA Unspecified fall, initial encounter; Y92.009 Unspecified place in unspecified non-institutional (private) residence as the place of occurrence of the external cause | CPT/HCPCS: A0425; A0429 ==

== ENCOUNTER 2021-05-20 22:54 | Emergency (ER) | payer MEDICARE, OTHER ==
--- NOTE | 2021-05-20 23:03 | ED Physician Documentation ---
PD HPI Fall - Stated complaint Stated Complaint: GLF - History obtained from History obtained from: Patient, EMS - History of Present Illness Mechanism of injury: Tripped Fall distance: Standing position Where injury occurred: Home Timing - onset: How many hours ago (1) Injury(ies) location: Head, Right Lower Extremity (right hip) Pain level now: 8 Quality of pain: Pain Associated symptoms: No: LOC, AMS, Neck pain, Weakness, Paresthesias Symptoms improve with: Rest Worsens with: Movement, Palpation Contributing factors: No: Anticoagulated, Intoxicated Recently seen: Not recently seen - Additional information Additional information: BIBA. 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 she denies LOC. She c/o generalized headache and right hip pain that is worse with movement Review of Systems Eyes: reports: Reviewed and negative Cardiac: reports: Reviewed and negative Respiratory: reports: Reviewed and negative GI: reports: Reviewed and negative Musculoskeletal: reports: Joint pain (right hip), Pain with weight bearing. denies: Neck pain, Back pain Neurologic: reports: Headache, Head injury. denies: Generalized weakness, Focal weakness, Numbness, LOC PD PAST MEDICAL HISTORY - Past Medical History Past Medical History: Yes Endocrine/Autoimmune: HyPOthyroidism - Past Surgical History Ortho: Knee replacement, Other (surgical repair right hip) - Present Medications Home Medications: Ambulatory Orders Medication Instructions Recorded Confirmed Esomeprazole Magnesium [Nexium] 1 cap PO DAILY 02/25/17 03/02/21 Levothyroxine Sodium [Synthroid] 1 tab PO DAILY 02/25/17 03/02/21 Sumatriptan Succinate [Imitrex] 0.5 tab PO PRN PRN 02/25/17 03/02/21 Doxycycline Hyclate 100 mg PO BID 7 Days #14 cap 03/02/21 Mupirocin 2% Oint [Bactroban 2% 1 applic TOP TID #15 gm 03/02/21 Oint] oxyCODONE [Roxicodone] 5 mg PO Q6H PRN #14 tablet 05/21/21 - Allergies Allergies/Adverse Reactions: Allergies Allergy/AdvReac Type Severity Reaction Status Date / Time Sulfa (Sulfonamide Allergy Anaphylaxis Verified 05/20/21 23:00 Antibiotics) codeine AdvReac Emesis Verified 05/20/21 23:00 PD ED PE NORMAL - Vitals Vital signs reviewed: Yes - General General: Alert and oriented X 3, No acute distress (NAD at rest; painful discomfort with movement involving right hip), Well developed/nourished - HEENT HEENT: PERRL, EOMI - Neck Neck: Supple, no meningeal sign, No bony TTP - Cardiac Cardiac: RRR, No murmur - Respiratory Respiratory: No respiratory distress, Clear bilaterally - Abdomen Abdomen: Soft, Non tender - Back Back: No spinal TTP - Extremities Extremities: No deformity, Other (right hip TTP with limited ROM due to pain ) - Neuro Neuro: Alert and oriented X 3, 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, No motor deficit, No sensory deficit, Normal speech Eye Opening: Spontaneous Motor: Obeys Commands Verbal: Oriented GCS Score: 15 PD ED PE EXPANDED - HEENT HEENT Visual: 1 - bruising, tenderness Results - Vitals Vitals: Vital Signs - 24 hr 05/20/21 05/21/21 23:00 01:17 Temperature 36.5 C 36.5 C Heart Rate 72 62 Respiratory 16 16 Rate Blood Pressure 190/98 H 149/75 H O2 Saturation 98 98 Oxygen O2 Source Room air - Rads (name of study) CT head Radiology: Prelim report reviewed, See rad report right hip xrays with PA pelvis Radiology: Prelim report reviewed, See rad report PD MEDICAL DECISION MAKING - ED course Complexity details: reviewed results, re-evaluated patient, considered differential, d/w patient ED course: presents after fall, head injury and right hip pain. No concerning/acute findings on CTH, right hip xrays. given vicodin 5/325 x 2 tablets with improvement although she still had significant pain with movement of right hip and thus given 5mg oxycodone and then discharged. Return precautions discussed Departure - Departure Disposition: 01 Home, Self Care Clinical Impression: Fall, Head injury, Contusion of hip, right Condition: Good Instructions: ED Mechanical Fall, ED Head Injury Closed, ED Contusion Hip, ED Prevention Fall Prescriptions: oxyCODONE [Roxicodone] 5 mg PO Q6H PRN #14 tablet PRN Reason: Pain Comments: A prescription for oxycodone has been electronically submitted to [facility]; you can use this in addition to your hydrocodone if the hydrocodone does not control your pain/headache. Realize there is an increased risk of side effect when using both of these medications (such as nausea, drowsiness, constipation). Your CT scan of your head does not show any acute abnormality except for the scalp hematoma (bruising and swelling that is visible on the outside). The xrays of your hip do not show any acute findings, such as fracture, dislocation, or displacement of the hardware. I would expect the pain to be the same, possibly worse, for 1-2 days before then steadily improving. Follow up with your primary care provider for reevaluation within 3-5 days, but return to the emergency department if you have significantly worsening/severe/uncontrolled symptoms Discharge Date/Time: 05/21/21 01:17
[2021-05-20] MEDS ORDERED: HYDROcod/ACETAM 5/325 MG TABLET PO STA (23:14)
--- NOTE | 2021-05-21 00:14 | CT Report ---
PROCEDURE: HEAD WO INDICATIONS: Trauma, fall, hematoma (scalp), headache TECHNIQUE: Noncontrast 4.5 mm thick angled axial sections acquired from the foramen magnum to the vertex. For r adiation dose reduction, the following was used: automated exposure control, adjustment of mA and/or kV according to patient size. COMPARISON: 08/01/2020 FINDINGS: Right frontal scalp hematoma. No acute intracranial hemorrhage. Global cerebral volume loss and chronic microvascular ischemic reynolds ges as seen on the prior exam. Russell-white matter differentiation is maintained, without CT evidence o f acute large territory infarct. Skull base and calvarium are intact. IMPRESSION: Right frontal scalp hematoma. No acute intracranial abnormality. Reviewed by: Deyvi Moore MD on 05/21/2021 12:13 AM PST Approved by: Deyvi Moore MD on 05/21/2021 12:13 AM PST Station ID: [id number]
--- NOTE | 2021-05-21 00:16 | XRAY Report ---
PROCEDURE: Hip w/Pelvis 2-3V RT INDICATIONS: Trauma, fall, right hip pain TECHNIQUE: AP pelvis with lateral view(s) of the right hip(s). COMPARISON: None. FINDINGS: Postsurgical changes of right femoral gamma nail for previous right femoral neck or proximal right fe mur fracture. No prior imaging is available. No evidence of acute fracture. Kyphoplasty changes at L5 . IMPRESSION: No acute finding demonstrated. Reviewed by: Deyvi Moore MD on 05/21/2021 12:15 AM PST Approved by: Deyvi Moore MD on 05/21/2021 12:15 AM PST Station ID: [id number]
[2021-05-21] MEDS ORDERED: oxyCODONE 5 MG TABLET PO STA (00:43)
[2021-05-21 01:18] VITALS: BP 149/75
== END 2021-05-21 01:17 | disposition home or self-care (01) ==
LOC: EDSEX → EDUNIT# → ED 22:54
DX: S09.90XA Unspecified injury of head, initial encounter (principal); S70.01XA Contusion of right hip, initial encounter; W01.10XA Fall on same level from slipping, tripping and stumbling with subsequent striking against unspecified object, initial encounter; Y92.009 Unspecified place in unspecified non-institutional (private) residence as the place of occurrence of the external cause
CPT/HCPCS: 70450; 73502; 99282; 99284; A9270

== ENCOUNTER 2021-08-27 12:38 | Outpatient (CLI) | payer MEDICARE, OTHER | END 2021-08-27 12:39 | disposition critical access hospital (66) | LOC: EMS 12:38 | DX: S81.012A Laceration without foreign body, left knee, initial encounter (principal); S80.01XA Contusion of right knee, initial encounter; W01.0XXA Fall on same level from slipping, tripping and stumbling without subsequent striking against object, initial encounter; Y93.01 Activity, walking, marching and hiking; Y92.009 Unspecified place in unspecified non-institutional (private) residence as the place of occurrence of the external cause | CPT/HCPCS: A0425; A0429 ==

== ENCOUNTER 2021-08-27 12:48 | Emergency (ER) | payer MEDICARE, OTHER ==
[2021-08-27 13:00] VITALS: BP 153/82
[2021-08-27] MEDS ORDERED: BUPIVACAINE 0.5% PF 10 ML VIAL SUBQ STA (13:27)
[2021-08-27] MEDS ORDERED: TETANUS/DIPHTHERIA/PERTUSSIS 0.5 ML SYRINGE IM ONE (13:28)
[2021-08-27] MEDS ORDERED: oxyCODONE 5 MG TABLET PO STA (13:28)
--- NOTE | 2021-08-27 13:31 | ED Physician Documentation ---
History of Present Illness - Stated complaint Stated Complaint: GLF/KNEE LAC - Chief complaint Chief Complaint: Trauma Ext - Additonal information Additional information: 80-year-old female presents emergency department for evaluation of a left knee laceration after ground-level fall. She was in slippers and tripped on carpeting that was not flat. She fell forward striking her knee on the carpet and sustained a rather large laceration horizontally across the patella measuring approximately 6 cm. She does have a history of previous total knee replacement. She did not lose consciousness. Not anticoagulated. 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 HEENT: None Psych: None Musculoskeletal: Osteoarthritis, Chronic back pain Derm: None - Past Surgical History Past Surgical History: Yes General: Appendectomy Ortho: Knee replacement, Other (surgical repair right hip) /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 HEENT: Tonsil/Adenoidectomy - Present Medications Home Medications: Ambulatory Orders Medication Instructions Recorded Confirmed Esomeprazole Magnesium [Nexium] 1 cap PO DAILY 02/25/17 03/02/21 Levothyroxine Sodium [Synthroid] 1 tab PO DAILY 02/25/17 03/02/21 Sumatriptan Succinate [Imitrex] 0.5 tab PO PRN PRN 02/25/17 03/02/21 Doxycycline Hyclate 100 mg PO BID 7 Days #14 cap 03/02/21 Mupirocin 2% Oint [Bactroban 2% 1 applic TOP TID #15 gm 03/02/21 Oint] oxyCODONE [Roxicodone] 5 mg PO Q6H PRN #14 tablet 05/21/21 Ibuprofen [Motrin] 600 mg PO Q6H PRN #30 tab 08/27/21 cephALEXin [Keflex] 500 mg PO Q6H #28 cap 08/27/21 oxyCODONE [Roxicodone] 5 mg PO TID PRN #20 tablet 08/27/21 - Allergies Allergies/Adverse Reactions: Allergies Allergy/AdvReac Type Severity Reaction Status Date / Time Sulfa (Sulfonamide Allergy Anaphylaxis Verified 08/27/21 12:55 Antibiotics) codeine AdvReac Emesis Verified 08/27/21 12:55 - Social History Does the pt smoke?: No Smoking Status: Never smoker Does the pt drink ETOH?: Yes Does the pt have substance abuse?: No - Immunizations Immunizations are current?: Yes - POLST Patient has POLST: No PD ED PE EXPANDED - General General: Alert, No acute distress, Well developed/nourished - Neck Neck: Supple w/out meningeal sx, No tenderness. No: Soft tissue TTP, Bony TTP, Limited ROM - Cardiac Cardiac: Regular Rate, Radial strong equal, Pedal strong equal, Cap refill < 2 sec - Respiratory Respiratory: Clear to ausultation daniella. No: Distress, Labored - Extremities Extremities: Right knee (Extensive contusion. Normal flexion and extension.), Left knee (Normal flexion and extension. 6 cm horizontal laceration directly across the patella. No obvious joint space or capsule involvement) Results - Vitals Vitals: Vital Signs - 24 hr 08/27/21 12:55 Temperature 36.5 C Heart Rate 74 Respiratory 16 Rate Blood Pressure 153/82 H O2 Saturation 98 Oxygen O2 Source Room air - Rads (name of study) left knee Radiology: Final report received (Soft tissue laceration without fracture or foreign body) Procedures - Laceration (location) left knee Length in cm: 7 Wound type: Linear, Superficial, Clean, Exposure of cartilage Neurovascular status: Sensory intact, Motor intact, Vascular intact Tendon involvement: Tendon intact Anesthesia: Marcaine 0.5% Wound preparation: Chlorhexadine, Irrigated copiously NS, Wound explored, To the base Deep layer closure: # sutures - enter number (13) Skin layer closure: Interrupted, Size #-0 - enter number (4) Other: Patient tolerated well, No complications, Tetanus booster given PD MEDICAL DECISION MAKING - ED course Complexity details: reviewed results, re-evaluated patient, considered differential, d/w patient ED course: 80-year-old female presents emergency department for evaluation of left knee laceration sustained after ground-level fall this morning when she tripped on uneven carpet. She does have a history total knee replacement in this extremity. She has preserved flexion extension. The x-ray did not show any worrisome findings. This was a rather large laceration about 7 cm. Fully explored to the base without any findings of capsular or joint involvement. The wound was closed with 13 sutures. Given the large size she will be placed on prophylactic antibiotics. Also given a knee immobilizer. Limited prescription for oxycodone. Patient is advised to follow-up with primary care doctor and emergent and worrisome return precautions were discussed. I am prescribing a short course of short-acting opioid pain medication for this patient. 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 I have discussed that the opioids are for short term therapy only, and will not be refilled from the ED. Departure - Departure Disposition: Home, Self Care Clinical Impression: Fall from ground level Laceration of left knee Qualifiers: Encounter type: initial encounter Qualified Code(s): S81.012A - Laceration without foreign body, left knee, initial encounter Knee contusion Qualifiers: Encounter type: initial encounter Laterality: right Qualified Code(s): S80.01XA - Contusion of right knee, initial encounter Condition: Stable Record reviewed to determine appropriate education?: Yes Instructions: ED Laceration All Follow-Up: Scot Armas MD [Primary Care Provider] - Prescriptions: cephALEXin [Keflex] 500 mg PO Q6H #28 cap Ibuprofen [Motrin] 600 mg PO Q6H PRN #30 tab PRN Reason: Pain oxyCODONE [Roxicodone] 5 mg PO TID PRN #20 tablet PRN Reason: Pain Comments: Jasmin you are seen today after a ground-level fall and had a large 7 cm laceration across her left knee. This was closed today with 13 sutures. The sutures should be removed in about 10 days time. Because of the location and length of this wound you are at high risk for infection. Please fill the prescription for the cephalexin to begin taking as directed. It is important that you use the knee immobilizer when out of bed. Avoid flexing the knee too much as this could reresult in tearing of the sutures. I expect that tomorrow will be very sore. You do have contusions on both knees. I do recommend that you use the Reynaldo wrap on the right 1 to help reduce swelling. If at any point you have concerns of infection, fevers uncontrolled vomiting or severe knee swelling then please return immediately to the ER. Use the walker you have at home to help you get around. I am prescribing a short course of narcotic pain medication for you. These are potentially dangerous and addictive medications that should be used carefully. These medications may constipate you. Take an sili-nsc-ydfabdr stool softener (docusate) twice daily with plenty of water while taking these medications. If you go 24 hours without a bowel movement, take lxsl-fry-luhrtfh miralax, per package instructions. Do not drink or drive while taking these medications. If you received narcotic or sedating medications while in the emergency department, do not drive for 24 hours. Store this medication in a safe, secure place and out of reach of children. It is a violation of federal law to give or sell this medication to another person or to use in a manner other than prescribed. The ED will not refill narcotic prescriptions, including prescriptions lost or stolen. To dispose of unwanted medications: 1. [facility] [address] in [place] has a medication drop box. They accept prescription medications (in pill form) Monday through Monday 9:00 a.m. to 5:00 p.m. 2. The [facility] [employer] accepts prescription medications (in pill form only) for disposal year round. Call for more information. 3. Contact the [facility] for the next [facility] sponsored prescription drug collection event. , [phone], or [phone]; Note that many narcotic pain relievers also contain Tylenol/acetaminophen. Please ensure that your total dose of acetaminophen from all sources does not exceed 3 g (3000 mg) per day.
[2021-08-27] MEDS ORDERED: LIDOCAINE 1% 2 ML VIAL MC ONE (13:52)
[2021-08-27] MEDS ORDERED: cefTRIAXone 1 GM VIAL IM STA (13:52)
--- NOTE | 2021-08-27 13:55 | XRAY Report ---
PROCEDURE: Knee 3 View LT INDICATIONS: glf; laceration TECHNIQUE: 3 views of the left knee(s) were acquired. COMPARISON: None. FINDINGS: Bones: No fractures or dislocations. No suspicious bony lesions. Soft tissues: No joint effusion. No suspicious soft tissue calcifications. Soft tissue defect noted anterior to the patella. No radiopaque foreign bodies. IMPRESSION: Soft tissue laceration without fracture or foreign body Reviewed by: Santos Orosco MD on 08/27/2021 12:54 PM [email or web address] Approved by: Santos Orosco MD on 08/27/2021 12:54 PM [facility] Station ID: [id number]
[2021-08-27] MEDS ORDERED: BACITRACIN ZINC OINT 1 PACKET TOP STA (15:12)
== END 2021-08-27 16:15 | disposition home or self-care (01) ==
LOC: EDUNIT# → ED 12:48
DX: S81.012A Laceration without foreign body, left knee, initial encounter (principal); W01.0XXA Fall on same level from slipping, tripping and stumbling without subsequent striking against object, initial encounter; I10 Essential (primary) hypertension; Z23 Encounter for immunization
CPT/HCPCS: 12002; 73562; 90471; 90715; 96372; 99284; A9270

== ENCOUNTER 2022-03-02 09:16 | Emergency (ER) | payer MEDICARE, OTHER ==
--- NOTE | 2022-03-02 09:38 | ED Physician Documentation ---
PD HPI LOWER EXT INJURY - Stated complaint Stated Complaint: LEG PX - History obtained from History obtained from: Patient, Family, EMS - History of Present Illness PD HPI LOW EXT INJURY LOCATION: Right, Lower leg Type of injury: Other (growing hematoma) Where injury occurred: Home Timing - onset: Yesterday Timing - duration: Days (1) Timing - details: Gradual onset Improved by: Rest, Immobilization Worsened by: Moving, Palpating Associated symptoms: Swelling, Discolored Contributing factors: Prior ortho surgery. No: Anticoagulated Similar symptoms before: Has not had sx before Recently seen: Not recently seen - Additional information Additional information: 81-year-old Jasmin Ralph has a history of Hypothyroidism and chronic lower extremity edema. She has not done well with diuretic and she is unable to place compression stockings. She has had chronic swelling for more than a year to her lower extremities and she has now developed some bruising to her lower extremities and she is noted to have a large hematoma to the medial aspect of the right lower calf. She has pain associated with this. She does not feel ill otherwise. She does require help into and out of bed and her family is helping her with this. Review of Systems Constitutional: reports: Fatigue. denies: Fever, Chills Eyes: denies: Decreased vision Ears: denies: Ear pain Nose: denies: Congestion Throat: denies: Sore throat Cardiac: denies: Chest pain / pressure, Palpitations Respiratory: denies: Dyspnea, Cough GI: denies: Abdominal Pain, Nausea, Vomiting, Diarrhea : denies: Dysuria, Frequency Skin: denies: Rash Musculoskeletal: reports: Extremity pain, Extremity swelling. 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 : None HEENT: None Psych: None Musculoskeletal: Osteoarthritis, Chronic back pain Derm: None - Past Surgical History Past Surgical History: Yes General: Appendectomy Ortho: Knee replacement, Other (surgical repair right hip) /FOREIGN EXCHANGE SERVICES MANAGER: Hysterectomy HEENT: Tonsil/Adenoidectomy - Present Medications Home Medications: Ambulatory Orders Medication Instructions Recorded Confirmed Levothyroxine Sodium [Synthroid] 1 tab PO DAILY 02/25/17 03/02/22 Sumatriptan Succinate [Imitrex] 0.5 tab PO PRN PRN 02/25/17 03/02/21 Dexamethasone [Decadron] 0.75 mg PO DAILY 03/02/22 03/02/22 HYDROcod/ACETAM 5/325 [[place] 5/325] 1 - 2 tablet PO Q6H PRN 03/02/22 03/02/22 traMADol [Ultram] 50 - 100 mg PO Q6H PRN #20 tablet 03/02/22 - Allergies Allergies/Adverse Reactions: Allergies Allergy/AdvReac Type Severity Reaction Status Date / Time Sulfa (Sulfonamide Allergy Anaphylaxis Verified 08/27/21 12:55 Antibiotics) codeine AdvReac Emesis Verified 08/27/21 12:55 - Social History Does the pt smoke?: No Smoking Status: Never smoker Does the pt drink ETOH?: Yes Does the pt have substance abuse?: No - Immunizations Immunizations are current?: Yes - POLST Patient has POLST: No PD ED PE NORMAL - Vitals Vital signs reviewed: Yes - General General: Alert and oriented X 3, No acute distress, Well developed/nourished - HEENT HEENT: Atraumatic, PERRL, EOMI - Cardiac Cardiac: RRR, No murmur - Respiratory Respiratory: No respiratory distress, Other (diminished breath sounds ) - Abdomen Abdomen: Soft, Non tender - Back Back: No CVA TTP, No spinal TTP - Derm Derm: Normal color, Warm and dry - Extremities Extremities: Other (There is 2+ pitting edema to the knee bilaterally and there is evidence of venous stasis disease bilaterally with color changes to the medial and lateral aspects of both calves. There is a large hematoma to the R medial calf. No drainage or surrounding erythema to suggest cellulitis. 20-30cm X 15cm) - Neuro Neuro: Alert and oriented X 3, flocculator operator 2-12 intact, No motor deficit, No sensory deficit, Normal speech Eye Opening: Spontaneous Motor: Obeys Commands Verbal: Oriented GCS Score: 15 - Psych Psych: Normal mood, Normal affect Results - Vitals Vitals: Vital Signs - 24 hr 03/02/22 03/02/22 03/02/22 09:20 10:06 13:08 Temperature 37.5 C 36.4 C L Heart Rate 92 96 84 Respiratory 18 18 14 Rate Blood Pressure 114/97 H 130/98 H 125/68 O2 Saturation 99 98 100 Oxygen O2 Source Room air - Labs Labs: Laboratory Tests 03/02/22 03/02/22 03/02/22 09:51 09:51 09:51 WBC 9.5 RBC 3.86 L Hgb 13.2 Hct 38.9 MCV 100.8 H MCH 34.2 H MCHC 33.9 RDW 13.4 Plt Count 355 MPV 8.2 Neut # (Auto) 7.8 H Lymph # (Auto) 1.0 L [place] # (Auto) 0.5 Eos # (Auto) 0.0 Baso # (Auto) 0.1 Absolute Nucleated RBC 0.00 Nucleated RBC % 0.0 PT 11.1 INR 1.0 APTT 26.4 Sodium 133 L Potassium 3.1 L Chloride 99 L Carbon Dioxide 24 Anion Gap 10.0 BUN 12 Creatinine 0.5 Estimated GFR (MDRD) 119 Glucose 125 H Calcium 9.5 Total Bilirubin 1.0 AST 27 ALT 30 Alkaline Phosphatase 47 Total Protein 5.6 L Albumin 3.2 Globulin 2.4 Albumin/Globulin Ratio 1.3 Lipase 42 PD MEDICAL DECISION MAKING - ED course Complexity details: reviewed old records, reviewed results, re-evaluated patient, considered differential, d/w patient, d/w family ED course: 81-year-old female with history of thyroid disorder and chronic lower extremity edema which has been resistant to treatment appears to have some significant dependent edema and she has now developed a hematoma to the medial aspect of the right calf. This is a large hematoma 30 x 15 cm. She has some pain associated with this. The thought is that she was injured by assistance with moving. She is not amenable to compression stockings and we have elected to teach the family the use of compression dressing and I have recommended they do this twice per day for 4 to 5 hours at a time. We did asked for consult from physical therapy to a assist the family in movement of the patient without injuring her legs. No specific therapy for the hematoma. Departure - Departure Disposition: 01 Home, Self Care Clinical Impression: Hematoma of lower leg, Dependent edema Instructions: ED Edema Legs Bilateral, ED Hematoma Follow-Up: Scot Armas MD [Provider Admit Priv/Credential] - Prescriptions: traMADol [Ultram] 50 - 100 mg PO Q6H PRN #20 tablet PRN Reason: Pain Comments: Jasmin, today there is a large hematoma on your right leg. This is a collection of blood from a broken blood vessel underneath the skin. It will not be possible for us to take the blood out of this without doing more damage to you. For the general swelling in your legs my recommendation is to use the wraps to your legs twice per day for about 4 to 5 hours at a time. Have your family help you with this. The expectation is that over a period of weeks that the swelling in your ankles gets improved as does the level of pain you have associated with this. The hematoma may have skin breakdown and may take months to heal. A follow-up with your primary care doctor is indicated. I have E scribed some tramadol to the [facility] here in [place] and my recommendation is to take this with some Tylenol as it will work better for pain
[2022-03-02 09:57] LABS: BASOPHILS # (AUTO) 0.1 10^3/uL (0.0-0.1); BASOPHILS % (AUTO) 0.5 %; HCT - HEMATOCRIT 38.9 % (37.0-47.0); HGB - HEMOGLOBIN 13.2 g/dL (12.0-16.0); LYMPHOCYTES % (AUTO) 10.3 %; MEAN CORPUSCULAR HEMOGLOBIN 34.2 pg (27.0-31.0); MEAN CORPUSCULAR HGB CONC 33.9 g/dL (32.0-36.0); MEAN CORPUSCULAR VOLUME 100.8 fL (81.0-99.0); MEAN PLATELET VOLUME 8.2 fL (7.9-10.8); MONOCYTES # (AUTO) 0.5 10^3/uL (0.0-1.0); NEUTROPHILS # (AUTO) 7.8 10^3/uL (1.5-6.6); NEUTROPHILS % (AUTO) 82.1 %; PLT - PLATELET COUNT 355 10^3/uL (130-450); RED BLOOD COUNT 3.86 10^6/uL (4.20-5.40); RED CELL DISTRIBUTION WIDTH 13.4 % (12.0-15.0); WHITE BLOOD COUNT 9.5 x10^3/uL (4.8-10.8)
[2022-03-02 10:01] LABS: PT - PROTHROMBIN TIME 11.1 secs (9.9-12.6)
[2022-03-02 10:08] LABS: ALBUMIN 3.2 g/dL (3.2-5.5); ALBUMIN/GLOBULIN RATIO 1.3 (1.0-2.2); CALCIUM 9.5 mg/dL (8.5-10.3); CREATININE 0.5 mg/dL (0.4-1.0); POTASSIUM 3.1 mmol/L (3.5-5.0); TOTAL PROTEIN 5.6 g/dL (6.7-8.2)
[2022-03-02 10:09] LABS: PARTIAL THROMBOPLASTIN TIME 26.4 secs (24.9-33.3)
[2022-03-02] MEDS ORDERED: traMADol 50 MG TABLET PO STA (14:24)
[2022-03-02 16:58] VITALS: BP 130/85
== END 2022-03-02 16:24 | disposition home or self-care (01) ==
LOC: EDUNIT# → EDBD → ED 09:16
DX: S80.11XA Contusion of right lower leg, initial encounter (principal); X58.XXXA Exposure to other specified factors, initial encounter; R60.9 Edema, unspecified; I10 Essential (primary) hypertension
CPT/HCPCS: 36415; 80053; 83690; 85025; 85610; 85730; 99282; 99284; A9270

== ENCOUNTER 2022-04-02 16:26 | Outpatient (CLI) | payer MEDICARE, OTHER | END 2022-04-02 23:59 | disposition critical access hospital (66) | LOC: EMS 16:26 | DX: S09.90XA Unspecified injury of head, initial encounter (principal); R53.1 Weakness; W18.39XA Other fall on same level, initial encounter; Y92.002 Bathroom of unspecified non-institutional (private) residence as the place of occurrence of the external cause | CPT/HCPCS: A0425; A0429 ==

== ENCOUNTER 2022-04-02 16:33 | Emergency (ER) | payer MEDICARE, OTHER ==
[2022-04-02] MEDS ORDERED: MORPHINE 2 MG/ML CARPUJECT IVP STA (17:16)
--- NOTE | 2022-04-02 17:19 | ED Physician Documentation ---
History of Present Illness - Stated complaint Stated Complaint: WEAKNESS/FALL - Chief complaint Chief Complaint: Ext Problem - History obtained from History obtained from: Patient, Family - History of Present Illness Timing: Today Pain level max: 8 Pain level now: 8 - Additonal information Additional information: 81-year-old female presents to the emergency department complaining of weakness in her bilateral legs over the past several days. She has been seen at the wound care clinic for chronic wounds on both legs as well as chronic edema. She states that she did strike her head when she fell, right side of the head. Denies being on any blood thinners. Worse with movement, better with rest. No loss of consciousness. No vomiting. 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 : None HEENT: None Psych: None Musculoskeletal: Osteoarthritis, Chronic back pain Derm: None - Past Surgical History Past Surgical History: Yes General: Appendectomy Ortho: Knee replacement, Other (surgical repair right hip) /BODY REPAIRER: Hysterectomy HEENT: Tonsil/Adenoidectomy - Present Medications Home Medications: Ambulatory Orders Medication Instructions Recorded Confirmed Levothyroxine Sodium [Synthroid] 1 tab PO DAILY 02/25/17 03/02/22 Sumatriptan Succinate [Imitrex] 0.5 tab PO PRN PRN 02/25/17 03/02/21 HYDROcod/ACETAM 5/325 [[place] 5/325] 1 - 2 tablet PO Q6H PRN 03/02/22 03/02/22 dexAMETHasone [Decadron] 0.75 mg PO DAILY 03/02/22 03/02/22 traMADol [Ultram] 50 - 100 mg PO Q6H PRN #20 tablet 03/02/22 Oxycodone HCl [Roxicodone] 5 mg PO Q6H PRN #14 tablet 04/02/22 - Allergies Allergies/Adverse Reactions: Allergies Allergy/AdvReac Type Severity Reaction Status Date / Time Sulfa (Sulfonamide Allergy Anaphylaxis Verified 08/27/21 12:55 Antibiotics) codeine AdvReac Emesis Verified 08/27/21 12:55 - Social History Does the pt smoke?: No Smoking Status: Never smoker Does the pt drink ETOH?: Yes Does the pt have substance abuse?: No - Immunizations Immunizations are current?: Yes - POLST Patient has POLST: No PD ED PE NORMAL - Vitals Vital signs reviewed: Yes - General General: Alert and oriented X 3, No acute distress, Well developed/nourished - HEENT HEENT: PERRL, Moist mucous membranes, Pharynx benign, Other (Tender to palpation in the right parietal area. Small hematoma. No palpable skull fracture.) - Neck Neck: Supple, no meningeal sign, No bony TTP - Cardiac Cardiac: RRR - Respiratory Respiratory: No respiratory distress, Clear bilaterally - Abdomen Abdomen: Soft, Non tender, Non distended - Back Back: No CVA TTP, No spinal TTP - Derm Derm: Warm and dry - Extremities Extremities: Normal ROM s pain, Other (Edema of the bilateral lower extremity. The bandages were removed. There is a skin tear on the right upper leg. There is a large poorly healing wound to the right lower leg as well. There is a small skin tear to the left foot.) - Neuro Neuro: Alert and oriented X 3, cigarette stamper 2-12 intact, No motor deficit, No sensory deficit, Normal speech Eye Opening: Spontaneous Motor: Obeys Commands Verbal: Oriented GCS Score: 15 - Psych Psych: Normal mood, Normal affect Results - Vitals Vitals: Vital Signs - 24 hr 04/02/22 04/02/22 04/02/22 16:47 18:52 20:00 Temperature 36.6 C Heart Rate 102 H 93 92 Respiratory 22 21 20 Rate Blood Pressure 123/88 H 106/70 154/104 H O2 Saturation 96 96 97 04/02/22 21:44 Temperature Heart Rate 92 Respiratory 16 Rate Blood Pressure 156/114 H O2 Saturation 97 Oxygen O2 Source Room air - EKG (time done) 1801 Rate: Rate (enter#) (94) Rhythm: NSR [place]: Normal Intervals: Normal [place] QRS: Normal Ischemia: Non specific changes - Labs Labs: Laboratory Tests 04/02/22 04/02/22 04/02/22 17:29 17:29 20:19 WBC 15.0 H RBC 3.93 L Hgb 13.4 Hct 39.0 MCV 99.2 H MCH 34.1 H MCHC 34.4 RDW 13.4 Plt Count 407 MPV 8.2 Neut # (Auto) Not Reportable Lymph # (Auto) Not Reportable [place] # (Auto) Not Reportable Eos # (Auto) Not Reportable Baso # (Auto) Not Reportable Absolute Nucleated RBC Not Reportable Total Counted 100 Band Neuts % (Manual) 1 Reactive Lymphs % (Man) 6 Abnorm Lymph % (Manual) 0 Nucleated RBC % Not Reportable Neutrophils # (Manual) 12.8 H Lymphocytes # (Manual) 1.7 Monocytes # (Manual) 0.3 Eosinophils # (Manual) 0.2 Basophils # (Manual) 0.2 H Differential Comment MANUAL DIFFERENTIAL WBC Morphology NORMAL APPEARANCE Platelet Estimate NORMAL (130-450,000) Platelet Morphology NORMAL APPEARANCE RBC Morph Micro Appear NORMAL APPEARANCE Sodium 129 L Potassium 2.4 L* Chloride 93 L Carbon Dioxide 23 Anion Gap 13.0 BUN 15 Creatinine 0.5 Estimated GFR (MDRD) 119 Glucose 78 Calcium 8.8 Magnesium 1.6 L Total Bilirubin 0.9 AST 15 ALT 14 Alkaline Phosphatase 75 Total Protein 5.3 L Albumin 2.7 L Globulin 2.6 Albumin/Globulin Ratio 1.0 Urine Color YELLOW Urine Clarity CLEAR Urine pH 6.0 Ur Specific [place] 1.015 Urine Protein NEGATIVE Urine Glucose (UA) NEGATIVE Urine Ketones >=80 H Urine Occult Blood NEGATIVE Urine Nitrite NEGATIVE Urine Bilirubin NEGATIVE Urine Urobilinogen 0.2 (NORMAL) Ur Leukocyte Esterase NEGATIVE Ur Microscopic Review NOT INDICATED Urine Culture Comments NOT INDICATED - Rads (name of study) Head CT Radiology: Final report received, EMP read contemporaneously, See rad report Cervical spine CT Radiology: Final report received, EMP read contemporaneously, See rad report PD MEDICAL DECISION MAKING - ED course Complexity details: reviewed results, re-evaluated patient, considered differential, d/w patient, d/w family ED course: No acute findings on CT scan. She was hypokalemic and hypomagnesemic. Both of these were replaced. Pain well controlled. Ambulating well with a walker, but does have a shuffling gait. Family confirms this is baseline. We will prescribe pain medication for home as she is having increasing pain in her legs recently. The emergency department nurses spoke with the patient's home health nurses who will come and see her tomorrow to rewrap her legs. There is no sign of infection currently or indication for antibiotics. Patient and family counseled regarding signs and symptoms for which I believe and urgent re- evaluation would be necessary. Patient with good understanding of and agreement to plan and is comfortable going home at this time This document was made in part using voice recognition software. While efforts are made to proofread this document, sound alike and grammatical errors may occur. Departure - Departure Disposition: Home, Self Care Clinical Impression: Hypokalemia, Hypomagnesemia Fall Qualifiers: Encounter type: initial encounter Qualified Code(s): W19.XXXA - Unspecified fall, initial encounter Head injury Qualifiers: Encounter type: initial encounter Qualified Code(s): S09.90XA - Unspecified injury of head, initial encounter Condition: Good Instructions: ED Head Injury Closed, ED Potassium Deficiency Follow-Up: Scot Armas MD [Primary Care Provider] - Within 1 week Prescriptions: Oxycodone HCl [Roxicodone] 5 mg PO Q6H PRN #14 tablet PRN Reason: Pain Comments: Please follow-up with her doctor for further care. Her head CT and cervical spine CT did not show any acute abnormalities. Her magnesium and potassium both were low today and this can contribute to weakness. She should have her levels rechecked within 3 to 4 days with her doctor. Please call on Monday for this. Her dressings on her legs were changed tonight. Her [employer] [facility] is going to come tomorrow to redress the legs. It is recommended that she follow- up with wound care as well. Her doctor can place this referral if need to be. She did have an appointment on March 30, but this appears to have been canceled. She needs to continue to walk at home and may benefit from physical therapy as well. Her prescriptions were sent to [facility] in [place]. We will trial her on a low-dose of oxycodone rather than tramadol to see if this helps control her pain better. Do not take them together. I am prescribing a short course of narcotic pain medication for you. These are potentially dangerous and addictive medications that should be used carefully. These medications may constipate you. Take an [id number]-[id number] stool softener (docusate) twice daily with plenty of water while taking these medications. If you go 24 hours without a bowel movement, take [id number] miralax, per package instructions. Do not drink or drive while taking these medications. If you received narcotic or sedating medications while in the emergency department, do not drive for 24 hours. Store this medication in a safe, secure place and out of reach of children. It is a violation of federal law to give or sell this medication to another person or to use in a manner other than prescribed. The ED will not refill narcotic prescriptions, including prescriptions lost or stolen. To dispose of unwanted medications: 1. [facility] [address] in [place] has a medication drop box. They accept prescription medications (in pill form) Monday through Monday 9:00 a.m. to 5:00 p.m. 2. [facility] accepts prescription medications (in pill form only) for disposal year round. Call for more information. 3. Contact the [facility] for the next [facility] sponsored prescription drug collection event. , [phone], or [phone]; Discharge Date/Time: 04/02/22 21:44
[2022-04-02 17:35] LABS: BASOPHILS % (AUTO) 0.3 %; EOSINOPHILS % (AUTO) 0.1 %; HGB - HEMOGLOBIN 13.4 g/dL (12.0-16.0); LYMPHOCYTES % (AUTO) 9.8 %; MEAN CORPUSCULAR HEMOGLOBIN 34.1 pg (27.0-31.0); MEAN CORPUSCULAR HGB CONC 34.4 g/dL (32.0-36.0); MEAN CORPUSCULAR VOLUME 99.2 fL (81.0-99.0); MEAN PLATELET VOLUME 8.2 fL (7.9-10.8); MONOCYTES % (AUTO) 3.3 %; PLT - PLATELET COUNT 407 10^3/uL (130-450); RED BLOOD COUNT 3.93 10^6/uL (4.20-5.40); RED CELL DISTRIBUTION WIDTH 13.4 % (12.0-15.0)
[2022-04-02 17:37] LABS: ABNORMAL LYMPHS % (MANUAL) 0 %
[2022-04-02 17:49] LABS: ALBUMIN 2.7 g/dL (3.2-5.5); BILIRUBIN,TOTAL 0.9 mg/dL (0.2-1.0); CREATININE 0.5 mg/dL (0.4-1.0); MAGNESIUM 1.6 mg/dL (1.7-2.8); TOTAL PROTEIN 5.3 g/dL (6.7-8.2)
[2022-04-02 17:56] LABS: CALCIUM 8.8 mg/dL (8.5-10.3)
[2022-04-02] MEDS ORDERED: MAGNESIUM SULFATE 2 GRAM 2 GM/50 ML BAG IV ONE (17:57)
[2022-04-02] MEDS ORDERED: POTASSIUM CHLOR 10 MEQ/100 ML 10 MEQ/100 ML BAG IV STA (17:57)
[2022-04-02 18:00] LABS: BAND NEUTROPHILS % (MANUAL) 1 %; BASOPHILS # (MANUAL) 0.2 10^3/uL (0-0.1); BASOPHILS % (MANUAL) 1 %; EOSINOPHILS # (MANUAL) 0.2 10^3/uL (0-0.7); LYMPHOCYTES # (MANUAL) 1.7 10^3/uL (1.5-3.5); LYMPHOCYTES % (MANUAL) 5 %; MONOCYTES # (MANUAL) 0.3 10^3/uL (0.0-1.0); NEUTROPHILS # (MANUAL) 12.8 10^3/uL (1.5-6.6); POTASSIUM 2.4 mmol/L (3.5-5.0); REACTIVE LYMPHS % (MANUAL) 6 %
[2022-04-02 18:01] LABS: DIFFERENTIAL COMMENT MANUAL DIFFERENTIAL; PLATELET ESTIMATE, MANUAL NORMAL (130-450,000) (NORMAL); PLATELET MORPHOLOGY NORMAL APPEARANCE (NORMAL); RBC MORPHOLOGY (MULTIPLE) NORMAL APPEARANCE (NORMAL); WBC MORPHOLOGY (MULTIPLE) NORMAL APPEARANCE (NORMAL)
--- NOTE | 2022-04-02 18:13 | CT Report ---
PROCEDURE: CERVICAL SPINE WO INDICATIONS: fall, head/neck injury TECHNIQUE: Noncontrast 3 mm thick sections acquired from the skull base to the T4 level. Sagittal and coronal r eformats were then constructed. For radiation dose reduction, the following was used: automated exp osure control, adjustment of mA and/or kV according to patient size. COMPARISON: Correlation is made with the accompanying head CT, 04/02/2022. 08/01/2020 FINDINGS: Image quality: Excellent. Bones: No fractures or dislocations. Visualized superior ribs are intact. There is reversal of the normal cervical lordosis, with the apex at the C3-C4 level. Minimal retroli sthesis is seen at the C4-C5 level. There is at least moderate disc space narrowing seen at C2-C3, with moderate to severe disc space baldomero rowing C3-C4, C4-C5, C5-C6, and C6-C7. Soft tissues: Prevertebral soft tissues are normal in thickness. No paravertebral hematomas. No ap ical pneumothoraces. An ascending thoracic aortic aneurysm is partially seen, measuring up to 4.2 cm transversely on these images. IMPRESSION: Negative for acute fracture. Advanced cervical spine degenerative changes are seen. There is partial visualization of a mild ascending thoracic aortic aneurysm. Reviewed by: Jaime Howell MD on 04/02/2022 5:12 PM [facility] Approved by: Jaime Howell MD on 04/02/2022 5:12 PM [facility] Station ID: [id number]
--- NOTE | 2022-04-02 18:14 | CT Report ---
PROCEDURE: HEAD WO INDICATIONS: fall, head injury TECHNIQUE: Noncontrast 4.5 mm thick angled axial sections acquired from the foramen magnum to the vertex. For r adiation dose reduction, the following was used: automated exposure control, adjustment of mA and/or kV according to patient size. COMPARISON: 05/20/2021, 08/01/2020. Correlation is also made with the accompanying cervical spine CT, 04/10/2022. FINDINGS: Image quality: There is streak artifact seen through the skull base. CSF spaces: Basal cisterns are patent. No extra-axial fluid collections. Ventricles are normal in size and shape. Brain: No midline shift. No intracranial masses or hemorrhage. Russell-white matter interface is norm al. Skull and face: Calvarium and visualized facial bones are intact, without suspicious lesions. Sinuses: Visualized sinuses and mastoids are clear. IMPRESSION: No intracranial hemorrhage is seen. No significant intracranial abnormality is seen. Age-appropriate brain parenchymal volume loss and chronic small vessel ischemic change can be seen. Reviewed by: Jaime Howell MD on 04/02/2022 5:13 PM [place] Approved by: Jaime Howell MD on 04/02/2022 5:13 PM [facility] Station ID: [id number]
[2022-04-02] MEDS ORDERED: POTASSIUM CHLORIDE 20 MEQ TABLET PO STA (18:20)
[2022-04-02] MEDS ORDERED: oxyCODONE 5 MG TABLET PO STA (20:08)
[2022-04-02 20:35] LABS: BILIRUBIN,URINE NEGATIVE (NEGATIVE); GLUCOSE, URINE (UA) NEGATIVE (NEGATIVE); KETONES,URINE (UA) >=80 mg/dL (NEGATIVE); LEUKOCYTE ESTERASE, URINE NEGATIVE (NEGATIVE); NITRITE,URINE NEGATIVE (NEGATIVE); OCCULT BLOOD,URINE NEGATIVE (NEGATIVE); PROTEIN,URINE NEGATIVE (NEGATIVE); UROBILINOGEN,URINE 0.2 (NORMAL) E.U./dL (NORMAL)
[2022-04-02 20:37] LABS: CLARITY,URINE CLEAR (CLEAR)
[2022-04-02 21:46] VITALS: BP 156/114
== END 2022-04-02 21:44 | disposition home or self-care (01) ==
LOC: EDUNIT# → ED 16:33
DX: E87.6 Hypokalemia (principal); E83.42 Hypomagnesemia; S09.90XA Unspecified injury of head, initial encounter; W19.XXXA Unspecified fall, initial encounter; Y93.01 Activity, walking, marching and hiking; Y92.009 Unspecified place in unspecified non-institutional (private) residence as the place of occurrence of the external cause
CPT/HCPCS: 36415; 51701; 70450; 72125; 80053; 81003; 83735; 85025; 93005; 96365; 96368; 96375; 99284; A9270; 81001; 83605; 87086

== ENCOUNTER 2022-04-03 15:27 | Outpatient (CLI) | payer MEDICARE, OTHER | END 2022-04-03 23:59 | disposition EMS.NT | LOC: EMS 15:27 | DX: R53.1 Weakness (principal); Z74.09 Other reduced mobility ==

== ENCOUNTER 2022-04-27 11:47 | Outpatient (CLI) | payer MEDICARE, OTHER ==
[2022-04-27 12:01] LABS: GLUCOSE, URINE (UA) NEGATIVE (NEGATIVE); KETONES,URINE (UA) 15 mg/dL (NEGATIVE); LEUKOCYTE ESTERASE, URINE MODERATE (NEGATIVE); NITRITE,URINE NEGATIVE (NEGATIVE); OCCULT BLOOD,URINE TRACE-INTA (NEGATIVE); PROTEIN,URINE TRACE mg/dL (NEGATIVE); UROBILINOGEN,URINE 0.2 (NORMAL) E.U./dL (NORMAL)
[2022-04-27 12:03] LABS: CLARITY,URINE CLOUDY (CLEAR)
[2022-04-27 12:04] LABS: BILIRUBIN,URINE NEGATIVE (NEGATIVE); ICTOTEST,URINE NEGATIVE
[2022-04-27 12:15] LABS: BACTERIA,URINE Many /HPF (None Seen); RBC,URINE 0-5 /HPF (0-5); SQUAMOUS EPITHELIAL CELL,UR FEW Squamous (<= Few); WBC CLUMPS,URINE PRESENT; WBC,URINE >25 /HPF (0-5)
== END 2022-04-27 11:48 | disposition home or self-care (01) ==
LOC: LAB.R 11:47
PROVIDERS: ATTEND Family Medicine
DX: N39.0 Urinary tract infection, site not specified (principal)
CPT/HCPCS: 81001; 87086

== ENCOUNTER 2022-04-27 15:50 | Outpatient (CLI) | payer MEDICARE, OTHER | END 2022-04-27 23:59 | disposition critical access hospital (66) | LOC: EMS 15:50 | DX: R52 Pain, unspecified (principal); R41.0 Disorientation, unspecified; R63.0 Anorexia; N39.0 Urinary tract infection, site not specified; R53.81 Other malaise | CPT/HCPCS: A0425; A0429 ==

== ENCOUNTER 2022-04-27 16:00 | Emergency (ER) | payer MEDICARE, OTHER ==
[2022-04-27] MEDS ORDERED: SODIUM CHLORIDE 0.9% 1,000 ML IV STA (16:29)
[2022-04-27] MEDS ORDERED: MORPHINE 2 MG/ML CARPUJECT IVP STA (16:30)
[2022-04-27] MEDS ORDERED: cefTRIAXone 1 GM VIAL IVP STA (16:34)
--- NOTE | 2022-04-27 16:38 | ED Physician Documentation ---
History of Present Illness - Stated complaint Stated Complaint: DYSURIA - Chief complaint Chief Complaint: Neuro - History obtained from History obtained from: Patient, Family - History of Present Illness Timing: Today Pain level max: 7 Pain level now: 6 - Additonal information Additional information: Patient is a 81-year-old female brought in by family today. They state that she has had increasing weakness over the past 4 to 5 weeks. She has been followed by her doctor. The daughter states that the patient had a urinalysis collected today and was told that she has a UTI. Because they are concerned about her ability to swallow oral medications, her doctor recommended that she come here for IV antibiotics. No fever. No chills. Family states that the patient is normally ambulatory, but has been using a walker over the past several weeks. They state that she is more somnolent than usual. No vomiting. No diarrhea. Patient also has diffuse abdominal pain, diffuse chest wall pain and diffuse body pain. Family states decreased appetite. 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 : None HEENT: None Psych: None Musculoskeletal: Osteoarthritis, Chronic back pain Derm: None - Past Surgical History Past Surgical History: Yes General: Appendectomy Ortho: Knee replacement, Other (surgical repair right hip) /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 RADIAL: Hysterectomy HEENT: Tonsil/Adenoidectomy - Present Medications Home Medications: Ambulatory Orders Medication Instructions Recorded Confirmed Levothyroxine Sodium [Synthroid] 25 mcg PO DAILY 02/25/17 04/27/22 dexAMETHasone [Decadron] 0.75 mg PO DAILY 03/02/22 04/27/22 traMADol [Ultram] 50 - 100 mg PO Q6H PRN #20 tablet 03/02/22 04/27/22 Cephalexin Suspension [Keflex] 500 mg PO QID 5 Days #200 ml 04/27/22 Magnesium Oxide [Magnesium Oxide 240 mg PO DAILY #30 packet 04/27/22 400] Nortriptyline [Pamelor] 10 mg PO HS 04/27/22 04/27/22 Potassium Chloride Oral Soln 20 meq PO DAILY #30 ea 04/27/22 [Potassium Chloride] oxyCODONE [Roxicodone] 5 mg PO Q6H PRN #7 tablet 04/27/22 - Allergies Allergies/Adverse Reactions: Allergies Allergy/AdvReac Type Severity Reaction Status Date / Time Sulfa (Sulfonamide Allergy Anaphylaxis Verified 08/27/21 12:55 Antibiotics) codeine AdvReac Emesis Verified 08/27/21 12:55 - Social History Does the pt smoke?: No Smoking Status: Never smoker Does the pt drink ETOH?: Yes Does the pt have substance abuse?: No - Immunizations Immunizations are current?: Yes - POLST Patient has POLST: No PD ED PE NORMAL - Vitals Vital signs reviewed: Yes - General General: No acute distress, Other (drowsy, but arousable) - HEENT HEENT: PERRL, Moist mucous membranes, Pharynx benign - Neck Neck: Supple, no meningeal sign - Cardiac Cardiac: RRR, Strong equal pulses - Respiratory Respiratory: No respiratory distress, Clear bilaterally - Abdomen Abdomen: Soft, Non tender, Non distended - Derm Derm: Warm and dry - Extremities Extremities: No edema, No calf tenderness / cord - Neuro Neuro: No motor deficit, No sensory deficit, Other Eye Opening: To Voice Motor: Obeys Commands Verbal: Confused GCS Score: 13 Results - Vitals Vitals: Vital Signs - 24 hr 04/27/22 04/27/22 04/27/22 16:10 18:15 20:49 Temperature 36.3 C L 36.6 C Heart Rate 101 H 98 96 Respiratory 25 H 20 20 Rate Blood Pressure 118/82 H 110/75 124/77 O2 Saturation 95 93 99 Oxygen O2 Source Room air - Labs Labs: Laboratory Tests 04/27/22 04/27/22 04/27/22 16:46 16:46 16:46 WBC 14.0 H RBC 3.98 L Hgb 13.1 Hct 41.7 MCV 104.8 H MCH 32.9 H MCHC 31.4 L RDW 15.1 H Plt Count 239 MPV 9.3 Neut # (Auto) Not Reportable Lymph # (Auto) Not Reportable Colbert # (Auto) Not Reportable Eos # (Auto) Not Reportable Baso # (Auto) Not Reportable Absolute Nucleated RBC Not Reportable Total Counted 100 Band Neuts % (Manual) 2 Abnorm Lymph % (Manual) 0 Metamyelocytes % 3 H Myelocytes % 1 H Nucleated RBC % Not Reportable Neutrophils # (Manual) 12.3 H Lymphocytes # (Manual) 0.7 L Monocytes # (Manual) 0.4 Eosinophils # (Manual) 0.0 Basophils # (Manual) 0.0 Nucleated RBCs 1 Differential Comment MANUAL DIFFERENTIAL WBC Morphology 2+ HYPERSEG NEUT Platelet Estimate NORMAL (130-450,000) Platelet Morphology NORMAL APPEARANCE RBC Morph Micro Appear 1+ MACROCYTOSIS Sodium 133 L Potassium 2.3 L* Chloride 93 L Carbon Dioxide 27 Anion Gap 13.0 BUN 18 Creatinine 0.4 Estimated GFR (MDRD) 154 Glucose 103 H Calcium 8.7 Phosphorus 1.7 L Magnesium 1.5 L Total Bilirubin 1.0 AST 16 ALT 13 Alkaline Phosphatase 119 B-Natriuretic Peptide 194 H Total Protein 5.1 L Albumin 2.4 L Globulin 2.7 Albumin/Globulin Ratio 0.9 L Lipase 28 Nasal Adenovirus (PCR) Nasal B. parapertussis DNA (PCR) Nasal Coronavir 229E PCR Nasal Coronavir HKU1 PCR Nasal Coronavir NL63 PCR Nasal Coronavir OC43 PCR Nasal Enterovir/Rhinovir PCR Nasal Influenza B PCR Nasal Influenza A PCR Nasal Parainfluen 1 PCR Nasal Parainfluen 2 PCR Nasal Parainfluen 3 PCR Nasal Parainfluen 4 PCR Nasal RSV (PCR) Nasal B.pertussis DNA PCR Nasal C.pneumoniae (PCR) Travis Human Metapneumo PCR Nasal M.pneumoniae (PCR) Nasal SARS-CoV-2 (PCR) 04/27/22 17:12 WBC RBC Hgb Hct MCV MCH MCHC RDW Plt Count MPV Neut # (Auto) Lymph # (Auto) Colbert # (Auto) Eos # (Auto) Baso # (Auto) Absolute Nucleated RBC Total Counted Band Neuts % (Manual) Abnorm Lymph % (Manual) Metamyelocytes % Myelocytes % Nucleated RBC % Neutrophils # (Manual) Lymphocytes # (Manual) Monocytes # (Manual) Eosinophils # (Manual) Basophils # (Manual) Nucleated RBCs Differential Comment WBC Morphology Platelet Estimate Platelet Morphology RBC Morph Micro Appear Sodium Potassium Chloride Carbon Dioxide Anion Gap BUN Creatinine Estimated GFR (MDRD) Glucose Calcium Phosphorus Magnesium Total Bilirubin AST ALT Alkaline Phosphatase B-Natriuretic Peptide Total Protein Albumin Globulin Albumin/Globulin Ratio Lipase Nasal Adenovirus (PCR) NOT DETECTED Nasal B. parapertussis DNA (PCR) NOT DETECTED Nasal Coronavir 229E PCR NOT DETECTED Nasal Coronavir HKU1 PCR NOT DETECTED Nasal Coronavir NL63 PCR NOT DETECTED Nasal Coronavir OC43 PCR NOT DETECTED Nasal Enterovir/Rhinovir PCR NOT DETECTED Nasal Influenza B PCR NOT DETECTED Nasal Influenza A PCR NOT DETECTED Nasal Parainfluen 1 PCR NOT DETECTED Nasal Parainfluen 2 PCR NOT DETECTED Nasal Parainfluen 3 PCR NOT DETECTED Nasal Parainfluen 4 PCR NOT DETECTED Nasal RSV (PCR) NOT DETECTED Nasal B.pertussis DNA PCR NOT DETECTED Nasal C.pneumoniae (PCR) NOT DETECTED Travis Human Metapneumo PCR NOT DETECTED Nasal M.pneumoniae (PCR) NOT DETECTED Nasal SARS-CoV-2 (PCR) NOT DETECTED - Rads (name of study) head CT Radiology: Final report received, EMP read contemporaneously, See rad report chest CT Radiology: Final report received, EMP read contemporaneously, See rad report abd/pel CT Radiology: Final report received, EMP read contemporaneously, See rad report PD MEDICAL DECISION MAKING - ED course Complexity details: reviewed results, re-evaluated patient, considered differential, d/w patient, d/w family ED course: Patient is an 81-year-old female who has been going downhill over the past several weeks. Has become weaker, more confused and eating and drinking less. No significant findings on CT scan of the head, chest, abdomen and pelvis. She does have significant atrophy in her brain CT. She was given IV antibiotics for the UTI that was diagnosed earlier today. She is also found to be hypokalemic, hypomagnesemic. These were also replaced here. This has been an ongoing issue for the patient. We will place her on liquid medications for home as the family states that this is easier to give her. Recommend that they try to increase her nutrition intake as well. Patient likely has significant dementia and is declining. A hospice nurse was in the emergency department for another reason and did speak with the family regarding hospice and goals of care. They will follow-up with her doctor if they elect to choose hospice for this patient. They would like to take her home at this time. Family counseled regarding signs and symptoms for which I believe and urgent re-evaluation would be necessary. Family with good understanding of and agreement to plan and is comfortable going home at this time This document was made in part using voice recognition software. While efforts are made to proofread this document, sound alike and grammatical errors may occur. Departure - Departure Disposition: 01 Home, Self Care Clinical Impression: Hypokalemia, Hypomagnesemia, Dehydration UTI (urinary tract infection) Qualifiers: Urinary tract infection type: acute cystitis Hematuria presence: without hematuria Qualified Code(s): N30.00 - Acute cystitis without hematuria Malnutrition Qualifiers: Malnutrition type: unspecified type Qualified Code(s): E46 - Unspecified protein-calorie malnutrition Condition: Good Instructions: ED Dehydration, ED Diet High Potassium, ED UTI Cystitis Female Follow-Up: Scot Armas MD [Primary Care Provider] - Within 3 Days Prescriptions: Cephalexin Suspension [Keflex] 500 mg PO QID 5 Days #200 ml Magnesium Oxide [Magnesium Oxide 400] 240 mg PO DAILY #30 packet Potassium Chloride Oral Soln [Potassium Chloride] 20 meq PO DAILY #30 ea oxyCODONE [Roxicodone] 5 mg PO Q6H PRN #7 tablet PRN Reason: pain Comments: Your prescriptions were sent to the [facility] pharmacy. Please take all antibiotics until gone. Please follow-up with your doctor for further care. You will need to have your potassium rechecked in about 2 to 3 days to ensure that it is staying elevated. Her magnesium should be rechecked at that time as well. Please make sure she is drinking plenty of fluids. You should supplement her nutrition with things such as boost or Ensure. Please return if she worsens. Discharge Date/Time: 04/27/22 20:50
[2022-04-27 16:51] LABS: BASOPHILS % (AUTO) 0.4 %; EOSINOPHILS % (AUTO) 0.1 %; HCT - HEMATOCRIT 41.7 % (37.0-47.0); HGB - HEMOGLOBIN 13.1 g/dL (12.0-16.0); LYMPHOCYTES % (AUTO) 10.4 %; MEAN CORPUSCULAR HEMOGLOBIN 32.9 pg (27.0-31.0); MEAN CORPUSCULAR HGB CONC 31.4 g/dL (32.0-36.0); MEAN CORPUSCULAR VOLUME 104.8 fL (81.0-99.0); MEAN PLATELET VOLUME 9.3 fL (7.9-10.8); MONOCYTES % (AUTO) 5.2 %; NEUTROPHILS % (AUTO) 79.8 %; PLT - PLATELET COUNT 239 10^3/uL (130-450); RED BLOOD COUNT 3.98 10^6/uL (4.20-5.40); RED CELL DISTRIBUTION WIDTH 15.1 % (12.0-15.0)
[2022-04-27 16:55] LABS: ABNORMAL LYMPHS % (MANUAL) 0 %
[2022-04-27] MEDS ORDERED: iohexoL-300 100 ML VIAL ONE (16:59)
[2022-04-27 17:10] LABS: ALBUMIN 2.4 g/dL (3.2-5.5); ALBUMIN/GLOBULIN RATIO 0.9 (1.0-2.2); CALCIUM 8.7 mg/dL (8.5-10.3); CREATININE 0.4 mg/dL (0.4-1.0); MAGNESIUM 1.5 mg/dL (1.7-2.8); PHOSPHORUS 1.7 mg/dL (2.5-4.6); TOTAL PROTEIN 5.1 g/dL (6.7-8.2)
[2022-04-27 17:11] LABS: POTASSIUM 2.3 mmol/L (3.5-5.0)
[2022-04-27] MEDS ORDERED: POTASSIUM CHLOR 10 MEQ/100 ML 10 MEQ/100 ML BAG IV STA ×2 (17:14→17:57)
[2022-04-27] MEDS ORDERED: MAGNESIUM SULFATE 2 GRAM 2 GM/50 ML BAG IV ONE (17:14)
[2022-04-27 17:48] LABS: BAND NEUTROPHILS % (MANUAL) 2 %; LYMPHOCYTES # (MANUAL) 0.7 10^3/uL (1.5-3.5); LYMPHOCYTES % (MANUAL) 5 %; METAMYELOCYTES % (MANUAL) 3 %; MONOCYTES # (MANUAL) 0.4 10^3/uL (0.0-1.0); MYELOCYTES % (MANUAL) 1 %; NEUTROPHILS # (MANUAL) 12.3 10^3/uL (1.5-6.6); NUCLEATED RBC (MANUAL) 1 %
[2022-04-27 17:50] LABS: PLATELET ESTIMATE, MANUAL NORMAL (130-450,000) (NORMAL); PLATELET MORPHOLOGY NORMAL APPEARANCE (NORMAL)
[2022-04-27 17:57] LABS: DIFFERENTIAL COMMENT MANUAL DIFFERENTIAL; WBC MORPHOLOGY (MULTIPLE) 2+ HYPERSEG NEUT (NORMAL)
[2022-04-27] MEDS ORDERED: iohexoL-300 100 ML VIAL IVP ONE (18:03)
--- NOTE | 2022-04-27 18:06 | CT Report ---
PROCEDURE: HEAD WO INDICATIONS: headaches, s/p fall TECHNIQUE: Noncontrast 4.5 mm thick angled axial sections acquired from the foramen magnum to the vertex. For r adiation dose reduction, the following was used: automated exposure control, adjustment of mA and/or kV according to patient size. COMPARISON: 04/02/2022 FINDINGS: Image quality: Excellent. CSF spaces: Basal cisterns are patent. No extra-axial fluid collections. The ventricles are symmet kalpana in size and shape. Brain: No intracranial bleeds or masses. There is cerebral volume loss for age, with resultant vent ricular and sulcal prominence. There are periventricular and deep white matter chronic small vessel ischemic changes. There is intracranial internal carotid artery atherosclerosis. Skull and face: Calvarium and visualized facial bones appear intact, without suspicious lesions. Sinuses: Visualized sinuses and mastoids are clear. IMPRESSION: No CT evidence of acute intracranial abnormalities. No significant changes from previous study. No ac ayaka ankle fracture. Reviewed by: Morris Sarabia MD on 04/27/2022 6:04 PM PST Approved by: Morris Sarabia MD on 04/27/2022 6:04 PM PST Station ID: [id number]
--- NOTE | 2022-04-27 18:10 | CT Report ---
PROCEDURE: CHEST W INDICATIONS: chest wall pain s/p fall CONTRAST:100mL Omni 300 TECHNIQUE: After the administration of intravenous contrast, 1 mm axial images were acquired from the pulmonary apices through the posterior costophrenic angles. Axial 5 mm soft tissue kernel reconstructions were performed as well as 8 mm axial MIP and coronal and sagittal 5 mm reformations. For radiation dose reduction, the following was used: automated exposure control, adjustment of mA and/or kV according to patient size. COMPARISON: None. FINDINGS: Image quality: Excellent. Lungs and pleura: Dependent atelectasis in posterior aspect of bilateral lung peralta are seen most pr ominent in posterior lateral aspect of right lung base. No acute airspace opacities. No pleural effus ions or pneumothorax. Central and peripheral airways are patent and normal in caliber. Mediastinum: Heart size is enlarged, no pericardial effusion. No mediastinal hematoma. No mediastina l or hilar adenopathy by size criteria. Mild ascending thoracic aortic aneurysm is seen measures up t o 4.2 cm in largest AP diameter. No aortic dissection. Pulmonary arteries are normal in size. Esophag us is normal in caliber. There is a small hiatal hernia. Bones and chest wall: No suspicious bony lesions. No vertebral body compression fractures. No axil mary or supraclavicular adenopathy by size criteria. The thyroid is normal in size and there are no incidental findings.. Abdomen: Visualized upper abdominal solid organs appear normal. Upper abdominal bowel loops are nor mal in caliber. IMPRESSION: 1. Dependent atelectasis in posterior aspect of bilateral lung peralta most prominent in posterior lat eral periphery of right lung base and posterior aspect of left lung base. Mild contusion cannot be en tirely excluded. No pleural effusion or pneumothorax. Airway is patent. 2. No gross rib fractures. No acute vertebral body compression fracture is seen in thoracic spine. 3. No mediastinal hematoma. No mediastinal or hilar lymphadenopathy. 4. Ascending thoracic aortic aneurysm measures up to 4.2 cm in largest AP diameter. No aortic dissect ion. No pericardial effusion. CLINICAL RECOMMENDATION STATEMENTS: In patients <35 years with an ITN detected on CT, MRI, or extrathyroidal ultrasound, the Committee re commends further evaluation with dedicated thyroid ultrasound if the nodule is "e1 cm and has no susp icious imaging features, and if the patient has normal life expectancy. In patients "e35 years with an ITN detected on CT, MRI, or extrathyroidal ultrasound, the Committee r ecommends further evaluation with dedicated thyroid ultrasound if the nodule is "e1.5 cm and has no s uspicious imaging features, and if the patient has normal life expectancy. (ACR, 2014) Reviewed by: Morris Sarabia MD on 04/27/2022 6:09 PM PST Approved by: Morris Sarabia MD on 04/27/2022 6:09 PM PST Station ID: [id number]
--- NOTE | 2022-04-27 18:15 | CT Report ---
PROCEDURE: ABDOMEN/PELVIS W INDICATIONS: diffuse abd pain CONTRAST: 100mL Omni 300 TECHNIQUE: After the administration of IV contrast, 5 mm thick sections acquired from the diaphragms to the symp hysis. 5 mm thick coronal and sagittal reformats were acquired. For radiation dose reduction, the f ollowing was used: automated exposure control, adjustment of mA and/or kV according to patient size. COMPARISON: None. FINDINGS: Image quality: Excellent. ABDOMEN: Lung bases: Bibasilar dependent atelectasis are seen more prominent on the right side. No pleural eff usion or pneumothorax. Heart size is mildly enlarged, no pericardial effusion. Solid organs: Liver and spleen are normal in size and enhancement. Gallbladder is within normal [place] its. Biliary system is non dilated. Distal common bile duct measures up to 8 mm in diameter which is normal for patient's age. Pancreas enhances normally. No adrenal nodules. Kidneys demonstrate norm al size and enhancement, without hydronephrosis. 1.1 cm right renal cortical cyst is seen in mid allison e kidney. Peritoneum and bowel: Bowel loops demonstrate normal wall thickness and caliber. No free fluid or a ir. Sigmoid diverticulosis is seen, no sigmoid colon wall thickening or mesenteric fat stranding. Nodes and vessels: No retroperitoneal or mesenteric adenopathy by size criteria. Aorta and inferior vena cava are normal in size. Moderate atherosclerotic calcifications throughout abdominal aorta is seen. Miscellaneous: No ventral hernias. PELVIS: Genitourinary: Bladder wall thickness is normal. Miscellaneous: No inguinal hernias or adenopathy. Bones: There is prior internal fixation of right proximal femoral shaft with subacute appearing frac tures involving right superior and inferior pubic rami. Chronic-appearing compression deformity at L5 level is seen with prior vertebral plasty. No gross acute fracture or dislocation. No acute vertebra l body compression fracture. No suspicious bony lesions. IMPRESSION: 1. No acute solid organ injury within abdomen or pelvis. No free fluid or free air. 2. No gross acute fracture or dislocation is seen. Remote compression deformity of L5 with prior vert ebral plasty. Subacute to chronic-appearing right superior and inferior pubic ramus fractures. Prior fixation of right proximal femur. 3. Other incidental findings as described in detail above. Reviewed by: Morris Sarabia MD on 04/27/2022 6:13 PM PST Approved by: Morris Sarabia MD on 04/27/2022 6:13 PM PST Station ID: [id number]
[2022-04-27] MEDS ORDERED: POTASSIUM CHLORIDE 20 MEQ TABLET PO STA (18:16)
[2022-04-27 18:26] LABS: B. PARAPERTUSSIS- RESP PCR PAN NOT DETECTED; B. PERTUSSIS- RESP PCR PANEL NOT DETECTED; C. PNEUMONIAE- RESP PCR PANEL NOT DETECTED; CORONAVIRUS 229E-RESP PCR NOT DETECTED; CORONAVIRUS HKU1-RESP PCR NOT DETECTED; CORONAVIRUS NL63-RESP PCR NOT DETECTED; CORONAVIRUS OC43-RESP PCR NOT DETECTED; HUMAN METAPNEUMOVIRUS NOT DETECTED; INFLUENZA A- RESP PCR PANEL NOT DETECTED; INFLUENZA B - RESP PCR PANEL NOT DETECTED; M. PNEUMONIAE- RESP PCR PANEL NOT DETECTED; PARAINFLUENZA VIRUS 1 NOT DETECTED; PARAINFLUENZA VIRUS 2 NOT DETECTED; PARAINFLUENZA VIRUS 3 NOT DETECTED; PARAINFLUENZA VIRUS 4 NOT DETECTED; RHINOVIRUS/ENTEROVIRUS NOT DETECTED; RSV- RESP PCR PANEL NOT DETECTED; SARS-CoV-2 -RESP PCR PANEL NOT DETECTED
[2022-04-27 20:50] VITALS: BP 124/77
== END 2022-04-27 20:50 | disposition home or self-care (01) ==
LOC: EDUNIT# → ED 16:00
DX: E87.6 Hypokalemia (principal); E83.42 Hypomagnesemia; E86.0 Dehydration; N30.00 Acute cystitis without hematuria; E46 Unspecified protein-calorie malnutrition; Z20.822 Contact with and (suspected) exposure to COVID-19
CPT/HCPCS: 36415; 70450; 71260; 74177; 80053; 81001; 83690; 83735; 83880; 84100; 85025; 87086; 87633; 96365; 96366; 96368; 96375; 99284; Q9967